=== PATIENT | male | born 1955 | race Caucasian/White ===

== ENCOUNTER 2021-12-25 13:44 | Inpatient (IN) ==
[2021-12-25] MEDS ORDERED: Naloxone 0.4 MG/ML INJ IVP PRN (16:51)
[2021-12-25] MEDS ORDERED: Ondansetron 4 MG/2 ML VIAL IVP PRN (16:51)
[2021-12-25] MEDS ORDERED: Iopamidol - 370 500 ML MLS IVP ONE (17:27)
[2021-12-25] MEDS: *HR* Heparin 5,000 UNIT/ML VIAL SQ SCH (17:35)
[2021-12-25] MEDS: 0.9 % Sodium Chloride 1,000 ML IVC SCH (17:40)
[2021-12-25] MEDS ORDERED: Iopamidol - 370 500 ML MLS RC ONE (18:34)
[2021-12-26] MEDS ORDERED: traZODone 50 MG TABLET PO PRN (01:00)
[2021-12-26 01:38] LABS: Basophils % 0.4 %; Eosinophils # 0.1 K/mcL (0.0-0.6); Hematocrit 42.5 % (37.5-50.1); Hemoglobin 14.7 g/dL (12.9-16.9); Immature Granulocytes % 0.7 % (0-4); Lymphocytes % 10.9 %; Mean Corpuscular HGB Conc 34.6 g/dL (31.6-35.5); Mean Corpuscular Hemoglobin 31.5 pg (28.0-33.3); Mean Corpuscular Volume 91.2 fL (83.0-100.0); Mean Platelet Volume 8.5 fL (9.4-12.4); Monocytes # 0.9 K/mcL (0.0-1.3); Neutrophils # 6.9 K/mcL (1.6-8.9); Platelet Count 257 K/mcL (140-400); Red Blood Count 4.66 M/mcL (4.19-5.50); Red Cell Distribution Width 21.6 % (11.5-14.5); White Blood Count 8.9 K/mcL (4.3-11.1)
[2021-12-26 02:05] LABS: BUN/Creatinine Ratio 9 (6-26); Blood Urea Nitrogen 10 mg/dL (8-23); Calcium 9.1 mg/dL (8.6-10.3); Carbon Dioxide 25 mEq/L (23-29); Chloride 104 mEq/L (98-107); Glucose 110 mg/dL (70-105); Osmolality,Calculated 288 (280-300); Potassium 3.5 mEq/L (3.5-5.1); Sodium 139 mEq/L (136-145); eGFR For African Americans > 60 (> 60); eGFR For Non-African Americans > 60 (> 60)
[2021-12-26] MEDS: *HR* Heparin 5,000 UNIT/ML VIAL SQ SCH ×2 (05:22→13:44)
[2021-12-26] MEDS: 0.9 % Sodium Chloride 1,000 ML IVC SCH (08:06)
[2021-12-26] MEDS ORDERED: Ketorolac 30 MG/ML VIAL IVP ONE (08:48)
[2021-12-26] MEDS: Ketorolac 30 MG/ML VIAL IVP PRN (15:26)
[2021-12-26] MEDS: *HR* HYDROmorphone (PF) 1 MG/ML SYRINGE IVP PRN (19:44)
[2021-12-26] MEDS: Piperacillin/Tazobactam 3.375 GM in 0.9 % Sodium Chloride Mini Bag 100 ML IVPB SCH (23:41)
[2021-12-27] MEDS: *HR* HYDROmorphone (PF) 1 MG/ML SYRINGE IVP PRN ×3 (01:10→19:44)
[2021-12-27 01:11] LABS: Hematocrit 39.2 % (37.5-50.1); Hemoglobin 13.4 g/dL (12.9-16.9); Mean Corpuscular HGB Conc 34.2 g/dL (31.6-35.5); Mean Corpuscular Hemoglobin 31.8 pg (28.0-33.3); Mean Corpuscular Volume 93.1 fL (83.0-100.0); Platelet Count 209 K/mcL (140-400); Red Blood Count 4.21 M/mcL (4.19-5.50); Red Cell Distribution Width 21.2 % (11.5-14.5)
[2021-12-27 01:32] LABS: BUN/Creatinine Ratio 14 (6-26); Blood Urea Nitrogen 15 mg/dL (8-23); Calcium 8.8 mg/dL (8.6-10.3); Carbon Dioxide 24 mEq/L (23-29); Chloride 105 mEq/L (98-107); Glucose 85 mg/dL (70-105); INR 1.2; Osmolality,Calculated 286 (280-300); Phosphorous 2.8 mg/dL (2.7-4.5); Potassium 3.5 mEq/L (3.5-5.1); Prothrombin Time 13.3 Seconds (9.4-12.1); Sodium 138 mEq/L (136-145); eGFR For African Americans > 60 (> 60); eGFR For Non-African Americans > 60 (> 60)
[2021-12-27] MEDS: *HR* Heparin 5,000 UNIT/ML VIAL SQ SCH ×2 (03:37→16:11)
[2021-12-27] MEDS ORDERED: Lidocaine -MPF 2% 2 ML VIAL ONE (07:36)
[2021-12-27] MEDS ORDERED: *HR* Propofol 200 MG/20 ML VIAL IVP ONE (07:36)
[2021-12-27] MEDS ORDERED: *HR* FentaNYL (PF) 100 MCG/2 ML VIAL ONE ×3 (07:36→13:33)
[2021-12-27] MEDS ORDERED: *HR* Rocuronium Bromide 50 MG/5 ML VIAL ONE ×3 (07:36→11:37)
[2021-12-27] MEDS ORDERED: *HR* HYDROmorphone PF 0.5 MG/0.5 ML SYRINGE IVP PRN (08:25)
[2021-12-27] MEDS: Piperacillin/Tazobactam 3.375 GM in 0.9 % Sodium Chloride Mini Bag 100 ML IVPB SCH ×3 (09:01→23:05)
[2021-12-27] MEDS ORDERED: Albumin Human 5% 12.5 GM/250 ML IV.SOLN ONE (09:16)
[2021-12-27] MEDS ORDERED: Ketamine HCL *QUVA* 50mg (1mL) SYRINGE ONE (09:16)
[2021-12-27] MEDS ORDERED: Ondansetron 4 MG/2 ML VIAL ONE (13:19)
[2021-12-27] MEDS ORDERED: Sugammadex Sodium 200 MG/2 ML VIAL IV ONE (13:24)
[2021-12-27] MEDS ORDERED: *HR* HYDROMORPHONE 2 MG/ML VIAL ONE (13:43)
[2021-12-27] MEDS ORDERED: Ringers Solution, Lactated 1,000 ML ONE (13:55)
[2021-12-27] MEDS ORDERED: Acetaminophen IV 1,000 MG/100 ML BAG IVPB ONE (13:57)
[2021-12-27] MEDS ORDERED: *HR* Metoprolol 5 MG/5 ML VIAL IVP ONE (14:02)
[2021-12-27] MEDS: *HR* Metoprolol 5 MG/5 ML VIAL IVP PRN ×3 (14:05→14:20)
[2021-12-27] MEDS: Ketorolac 30 MG/ML VIAL IVP PRN (23:04)
[2021-12-28 01:40] LABS: Hematocrit 37.7 % (37.5-50.1); Hemoglobin 12.7 g/dL (12.9-16.9); Mean Corpuscular HGB Conc 33.7 g/dL (31.6-35.5); Mean Corpuscular Hemoglobin 31.4 pg (28.0-33.3); Mean Corpuscular Volume 93.3 fL (83.0-100.0); Mean Platelet Volume 8.6 fL (9.4-12.4); Platelet Count 213 K/mcL (140-400); Red Blood Count 4.04 M/mcL (4.19-5.50); Red Cell Distribution Width 21.2 % (11.5-14.5)
[2021-12-28 01:48] LABS: INR 1.4; Prothrombin Time 15.2 Seconds (9.4-12.1)
[2021-12-28 02:08] LABS: BUN/Creatinine Ratio 15 (6-26); Blood Urea Nitrogen 18 mg/dL (8-23); Calcium 8.9 mg/dL (8.6-10.3); Carbon Dioxide 27 mEq/L (23-29); Chloride 104 mEq/L (98-107); Glucose 125 mg/dL (70-105); Osmolality,Calculated 291 (280-300); Potassium 4.7 mEq/L (3.5-5.1); Sodium 139 mEq/L (136-145); eGFR For African Americans > 60 (> 60); eGFR For Non-African Americans > 60 (> 60)
[2021-12-28] MEDS: *HR* HYDROmorphone (PF) 1 MG/ML SYRINGE IVP PRN ×3 (02:48→23:05)
[2021-12-28] MEDS: *HR* Heparin 5,000 UNIT/ML VIAL SQ SCH ×2 (05:14→18:34)
[2021-12-28] MEDS: Piperacillin/Tazobactam 3.375 GM in 0.9 % Sodium Chloride Mini Bag 100 ML IVPB SCH ×2 (07:37→16:14)
[2021-12-28] MEDS: Acetaminophen IV 1,000 MG/100 ML BAG IVPB SCH ×4 (07:38→23:53)
[2021-12-28] MEDS: Ketorolac 30 MG/ML VIAL IVP PRN ×2 (10:33→20:26)
[2021-12-28] MEDS: Pantoprazole 40 MG VIAL IVP SCH (14:06)
[2021-12-29] MEDS: Piperacillin/Tazobactam 3.375 GM in 0.9 % Sodium Chloride Mini Bag 100 ML IVPB SCH ×3 (00:14→15:00)
[2021-12-29 03:19] LABS: Hematocrit 35.8 % (37.5-50.1); Hemoglobin 12.2 g/dL (12.9-16.9); Mean Corpuscular HGB Conc 34.1 g/dL (31.6-35.5); Mean Corpuscular Hemoglobin 31.9 pg (28.0-33.3); Mean Corpuscular Volume 93.7 fL (83.0-100.0); Mean Platelet Volume 8.9 fL (9.4-12.4); Platelet Count 199 K/mcL (140-400); Red Blood Count 3.82 M/mcL (4.19-5.50); Red Cell Distribution Width 22.2 % (11.5-14.5); White Blood Count 5.3 K/mcL (4.3-11.1)
[2021-12-29 03:33] LABS: BUN/Creatinine Ratio 20 (6-26); Blood Urea Nitrogen 22 mg/dL (8-23); Carbon Dioxide 30 mEq/L (23-29); Chloride 101 mEq/L (98-107); Glucose 80 mg/dL (70-105); Osmolality,Calculated 294 (280-300); Potassium 3.6 mEq/L (3.5-5.1); Sodium 141 mEq/L (136-145); eGFR For African Americans > 60 (> 60); eGFR For Non-African Americans > 60 (> 60)
[2021-12-29] MEDS: *HR* Heparin 5,000 UNIT/ML VIAL SQ SCH ×2 (05:59→17:12)
[2021-12-29] MEDS: Acetaminophen IV 1,000 MG/100 ML BAG IVPB SCH ×3 (05:59→17:12)
[2021-12-29] MEDS: Pantoprazole 40 MG VIAL IVP SCH (08:21)
[2021-12-29] MEDS: *HR* HYDROmorphone (PF) 1 MG/ML SYRINGE IVP PRN (19:41)
[2021-12-30] MEDS: *HR* HYDROmorphone (PF) 1 MG/ML SYRINGE IVP PRN ×2 (00:02→05:01)
[2021-12-30] MEDS: Acetaminophen IV 1,000 MG/100 ML BAG IVPB SCH ×3 (00:03→16:55)
[2021-12-30] MEDS: Piperacillin/Tazobactam 3.375 GM in 0.9 % Sodium Chloride Mini Bag 100 ML IVPB SCH ×3 (00:03→16:54)
[2021-12-30 03:07] LABS: Basophils # 0.1 K/mcL (0.0-0.2); Basophils % 1.1 %; Eosinophils # 0.3 K/mcL (0.0-0.6); Eosinophils % 5.2 %; Hematocrit 36.5 % (37.5-50.1); Hemoglobin 12.1 g/dL (12.9-16.9); Lymphocytes # 0.7 K/mcL (0.6-4.6); Lymphocytes % 11.6 %; Mean Corpuscular HGB Conc 33.2 g/dL (31.6-35.5); Mean Corpuscular Hemoglobin 31.4 pg (28.0-33.3); Mean Corpuscular Volume 94.8 fL (83.0-100.0); Mean Platelet Volume 9.3 fL (9.4-12.4); Monocytes # 0.8 K/mcL (0.0-1.3); Monocytes % 13.1 %; Neutrophils # 4.3 K/mcL (1.6-8.9); Platelet Count 229 K/mcL (140-400); Red Blood Count 3.85 M/mcL (4.19-5.50); Red Cell Distribution Width 21.5 % (11.5-14.5); White Blood Count 6.4 K/mcL (4.3-11.1)
[2021-12-30 03:28] LABS: BUN/Creatinine Ratio 23 (6-26); Blood Urea Nitrogen 26 mg/dL (8-23); Calcium 8.7 mg/dL (8.6-10.3); Carbon Dioxide 29 mEq/L (23-29); Chloride 96 mEq/L (98-107); Glucose 90 mg/dL (70-105); Osmolality,Calculated 286 (280-300); Potassium 3.4 mEq/L (3.5-5.1); Sodium 136 mEq/L (136-145); eGFR For African Americans > 60 (> 60); eGFR For Non-African Americans > 60 (> 60)
[2021-12-30] MEDS: *HR* Heparin 5,000 UNIT/ML VIAL SQ SCH ×2 (05:01→16:37)
[2021-12-30] MEDS ORDERED: Iopamidol - 370 500 ML MLS IVP ONE ×2 (06:55→07:17)
[2021-12-30] MEDS: Ketorolac 30 MG/ML VIAL IVP PRN (07:05)
[2021-12-30] MEDS ORDERED: *HR* HYDROmorphone (PF) 1 MG/ML SYRINGE IVP STA (07:24)
[2021-12-30] MEDS: Pantoprazole 40 MG VIAL IVP SCH (08:08)
[2021-12-30] MEDS ORDERED: Ondansetron 4 MG/2 ML VIAL IVP PRN ×2 (09:13→15:32)
[2021-12-30] MEDS ORDERED: *HR* Succinylcholine 200 MG/10 ML VIAL IVP ONE (09:17)
[2021-12-30] MEDS ORDERED: *HR* Rocuronium Bromide 50 MG/5 ML VIAL ONE ×2 (09:17→11:13)
[2021-12-30] MEDS ORDERED: Ondansetron 4 MG/2 ML VIAL ONE (09:17)
[2021-12-30] MEDS ORDERED: Lidocaine -MPF 4% 5 ML AMPUL ONE (09:17)
[2021-12-30] MEDS ORDERED: *HR* FentaNYL (PF) 100 MCG/2 ML VIAL ONE (09:17)
[2021-12-30] MEDS ORDERED: *HR* Propofol 200 MG/20 ML VIAL IVP ONE ×2 (09:17→13:05)
[2021-12-30] MEDS ORDERED: Lidocaine -MPF 2% 2 ML VIAL ONE (09:19)
[2021-12-30] MEDS ORDERED: *HR* HYDROMORPHONE 2 MG/ML VIAL ONE (11:10)
[2021-12-30] MEDS ORDERED: *HR* Metoprolol 5 MG/5 ML VIAL IVP SCH (12:00)
[2021-12-30] MEDS: *HR* HYDROmorphone PF 0.5 MG/0.5 ML SYRINGE IVP PRN ×4 (13:43→14:18)
[2021-12-30] MEDS ORDERED: Ringers Solution, Lactated 1,000 ML ONE (14:44)
[2021-12-30] MEDS ORDERED: Morphine PCA 30 MG/ 30 ML 30 ML PCA.VIAL IVC PRN (15:32)
[2021-12-30] MEDS ORDERED: Ketorolac 30 MG/ML VIAL IVP PRN (15:32)
[2021-12-30] MEDS ORDERED: Naloxone 0.4 MG/ML INJ IVP PRN (15:32)
[2021-12-30] MEDS: Fluconazole 400 MG/200 ML 400 MG/200 ML BAG IVPB SCH (16:54)
[2021-12-30] MEDS: Ringers Solution, Lactated 1,000 ML IVC SCH (17:11)
[2021-12-30] MEDS: Ipratropium/Albuterol Neb 3 ML IH SCH (20:30)
[2021-12-30] MEDS: *HR* Metoprolol 5 MG/5 ML VIAL IVP SCH (20:35)
[2021-12-30] MEDS ORDERED: 0.9 % Sodium Chloride 1,000 ML IV ONE (20:56)
[2021-12-31] MEDS: Piperacillin/Tazobactam 3.375 GM in 0.9 % Sodium Chloride Mini Bag 100 ML IVPB SCH ×3 (00:23→15:45)
[2021-12-31] MEDS: Acetaminophen IV 1,000 MG/100 ML BAG IVPB SCH ×4 (00:24→17:16)
[2021-12-31 01:16] LABS: Hematocrit 35.9 % (37.5-50.1); Hemoglobin 11.5 g/dL (12.9-16.9); Mean Corpuscular Volume 96.8 fL (83.0-100.0); Mean Platelet Volume 9.1 fL (9.4-12.4); Nucleated Red Blood Cells 0.2 /100 WBC (0); Platelet Count 194 K/mcL (140-400); Red Blood Count 3.71 M/mcL (4.19-5.50); Red Cell Distribution Width 22.3 % (11.5-14.5)
[2021-12-31 01:29] LABS: Calcium 7.9 mg/dL (8.6-10.3); Potassium 4.2 mEq/L (3.5-5.1)
[2021-12-31 01:41] LABS: White Blood Count 11.5 K/mcL (4.3-11.1)
[2021-12-31 02:28] LABS: Lymphocytes # 0.9 K/mcL (0.6-4.6); Monocytes # 0.7 K/mcL (0.0-1.3); Neutrophils # 9.9 K/mcL (1.6-8.9)
[2021-12-31 02:29] LABS: Platelet Estimate Normal (Normal)
[2021-12-31] MEDS: Ipratropium/Albuterol Neb 3 ML IH SCH ×4 (03:35→22:38)
[2021-12-31] MEDS: *HR* Heparin 5,000 UNIT/ML VIAL SQ SCH ×2 (04:28→17:16)
[2021-12-31] MEDS: *HR* Metoprolol 5 MG/5 ML VIAL IVP SCH ×3 (04:29→21:30)
[2021-12-31] MEDS: Ringers Solution, Lactated 1,000 ML IVC SCH (04:33)
[2021-12-31] MEDS: 0.9 % Sodium Chloride 1,000 ML IVC SCH ×2 (08:04→17:15)
[2021-12-31] MEDS: Fluconazole 400 MG/200 ML 400 MG/200 ML BAG IVPB SCH (08:04)
[2021-12-31] MEDS: Pantoprazole 40 MG VIAL IVP SCH (08:04)
[2021-12-31] MEDS ORDERED: Lidocaine -MPF 1% 5 ML AMPUL INFILT ONE (09:27)
[2021-12-31 10:58] LABS: Albumin 2.5 g/dL (3.5-5.7); Magnesium 2.1 mg/dL (1.6-2.6); Phosphorous 4.3 mg/dL (2.7-4.5)
[2021-12-31] MEDS ORDERED: D10% in Water 500 ML IVC PRN (12:59)
[2021-12-31] MEDS ORDERED: Clinimix E 5%-15% SOLUTION 2,000 ML with MVI, adult with vitamin K 10 ML IVC SCH (17:00)
[2022-01-01] MEDS: Piperacillin/Tazobactam 3.375 GM in 0.9 % Sodium Chloride Mini Bag 100 ML IVPB SCH ×4 (00:14→23:47)
[2022-01-01] MEDS: Acetaminophen IV 1,000 MG/100 ML BAG IVPB SCH ×5 (00:14→23:49)
[2022-01-01] MEDS: Ipratropium/Albuterol Neb 3 ML IH SCH ×4 (04:11→20:11)
[2022-01-01] MEDS: 0.9 % Sodium Chloride 1,000 ML IVC SCH ×4 (05:12→18:37)
[2022-01-01] MEDS: *HR* Heparin 5,000 UNIT/ML VIAL SQ SCH ×2 (05:14→18:52)
[2022-01-01] MEDS: *HR* Metoprolol 5 MG/5 ML VIAL IVP SCH ×3 (05:14→21:37)
[2022-01-01 05:52] LABS: Basophils % 0.5 %; Eosinophils # 0.3 K/mcL (0.0-0.6); Eosinophils % 3.8 %; Hematocrit 31.7 % (37.5-50.1); Immature Granulocytes % 7.1 % (0-4); Lymphocytes # 0.6 K/mcL (0.6-4.6); Mean Corpuscular HGB Conc 31.5 g/dL (31.6-35.5); Mean Corpuscular Hemoglobin 31.2 pg (28.0-33.3); Mean Corpuscular Volume 98.8 fL (83.0-100.0); Mean Platelet Volume 9.4 fL (9.4-12.4); Monocytes # 0.5 K/mcL (0.0-1.3); Monocytes % 6.1 %; Neutrophils # 6.5 K/mcL (1.6-8.9); Nucleated Red Blood Cells 0.2 /100 WBC (0); Platelet Count 178 K/mcL (140-400); Red Blood Count 3.21 M/mcL (4.19-5.50); Red Cell Distribution Width 22.5 % (11.5-14.5); Segmented Neutrophils % 75.5 %; White Blood Count 8.6 K/mcL (4.3-11.1)
[2022-01-01 06:09] LABS: BUN/Creatinine Ratio 28 (6-26); Blood Urea Nitrogen 27 mg/dL (8-23); Calcium 8.2 mg/dL (8.6-10.3); Carbon Dioxide 31 mEq/L (23-29); Chloride 106 mEq/L (98-107); Glucose 126 mg/dL (70-105); Osmolality,Calculated 293 (280-300); Potassium 3.6 mEq/L (3.5-5.1); Sodium 138 mEq/L (136-145); eGFR For African Americans > 60 (> 60); eGFR For Non-African Americans > 60 (> 60)
[2022-01-01 06:10] LABS: Magnesium 2.5 mg/dL (1.6-2.6); Phosphorous 2.3 mg/dL (2.7-4.5)
[2022-01-01 06:22] LABS: Anisocytosis 2+ (Not Present); Platelet Estimate Normal (Normal)
[2022-01-01] MEDS ORDERED: *HR* Dextrose 50 % in Water (Syg) 50 ML SYRINGE IVP ONE ×2 (08:36→09:00)
[2022-01-01] MEDS: Fluconazole 400 MG/200 ML 400 MG/200 ML BAG IVPB SCH (09:02)
[2022-01-01] MEDS: Pantoprazole 40 MG VIAL IVP SCH (09:03)
[2022-01-01] MEDS ORDERED: Potassium Phosphate 44 MEQ in 0.9 % Sodium Chloride 250 ML IVPB ONE (11:50)
[2022-01-01] MEDS ORDERED: Clinimix E 5%-15% SOLUTION 2,000 ML with MVI, adult with vitamin K 10 ML IVC SCH (17:00)
[2022-01-01] MEDS ORDERED: *HR* Dextrose 50 % in Water (Syg) 50 ML SYRINGE IVP PRN (17:19)
[2022-01-01] MEDS ORDERED: Dextrose Gel 15 GM/37.5 ML TUBE PO PRN ×2 (17:19)
[2022-01-01] MEDS ORDERED: D5% in Water 1,000 ML IVC PRN (17:19)
[2022-01-01] MEDS ORDERED: *HR* HYDROmorphone (PF) 1 MG/ML SYRINGE IVP ONE (23:24)
[2022-01-02] MEDS: 0.9 % Sodium Chloride 1,000 ML IVC SCH ×3 (00:03→12:30)
[2022-01-02] MEDS: *HR* Metoprolol 5 MG/5 ML VIAL IVP SCH ×3 (04:15→20:31)
[2022-01-02] MEDS: *HR* Heparin 5,000 UNIT/ML VIAL SQ SCH ×2 (04:16→16:37)
[2022-01-02 04:43] LABS: Hemoglobin 10.5 g/dL (12.9-16.9); Mean Corpuscular HGB Conc 31.8 g/dL (31.6-35.5); Mean Corpuscular Hemoglobin 31.3 pg (28.0-33.3); Mean Corpuscular Volume 98.2 fL (83.0-100.0); Mean Platelet Volume 9.6 fL (9.4-12.4); Nucleated Red Blood Cells 0.4 /100 WBC (0); Platelet Count 189 K/mcL (140-400); Red Blood Count 3.36 M/mcL (4.19-5.50); White Blood Count 7.3 K/mcL (4.3-11.1)
[2022-01-02] MEDS: Ipratropium/Albuterol Neb 3 ML IH SCH ×4 (04:44→21:32)
[2022-01-02 05:01] LABS: Magnesium 2.3 mg/dL (1.6-2.6); Phosphorous 3.3 mg/dL (2.7-4.5)
[2022-01-02 05:03] LABS: BUN/Creatinine Ratio 23 (6-26); Blood Urea Nitrogen 22 mg/dL (8-23); Calcium 8.6 mg/dL (8.6-10.3); Carbon Dioxide 27 mEq/L (23-29); Chloride 107 mEq/L (98-107); Glucose 121 mg/dL (70-105); Osmolality,Calculated 297 (280-300); Potassium 3.4 mEq/L (3.5-5.1); Sodium 141 mEq/L (136-145); eGFR For African Americans > 60 (> 60); eGFR For Non-African Americans > 60 (> 60)
[2022-01-02 05:19] LABS: Platelet Estimate Normal (Normal); Smudge Cells Present (Not Present)
[2022-01-02 05:20] LABS: Eosinophils # 0.4 K/mcL (0.0-0.6); Lymphocytes # 1.5 K/mcL (0.6-4.6); Monocytes # 0.3 K/mcL (0.0-1.3); Neutrophils # 5.1 K/mcL (1.6-8.9)
[2022-01-02] MEDS: Acetaminophen IV 1,000 MG/100 ML BAG IVPB SCH ×3 (06:08→17:53)
[2022-01-02] MEDS: Piperacillin/Tazobactam 3.375 GM in 0.9 % Sodium Chloride Mini Bag 100 ML IVPB SCH ×2 (08:04→16:34)
[2022-01-02] MEDS: Pantoprazole 40 MG VIAL IVP SCH (08:05)
[2022-01-02] MEDS: Fluconazole 400 MG/200 ML 400 MG/200 ML BAG IVPB SCH (08:05)
[2022-01-02] MEDS: Orphenadrine 60 MG/2 ML VIAL IVP PRN (09:33)
[2022-01-02] MEDS ORDERED: *HR* HYDROmorphone (PF) 1 MG/ML SYRINGE IVP ONE (10:45)
[2022-01-02] MEDS: 0.45 % Sodium Chloride w/KCl 20 MEQ/1,000 ML MLS IVC SCH (10:47)
[2022-01-02] MEDS ORDERED: Iopamidol - 370 500 ML MLS IVP ONE (10:50)
[2022-01-02] MEDS: Bisacodyl 10 MG RECTAL SUPPOSITORY RC PRN (12:38)
[2022-01-02] MEDS ORDERED: Clinimix E 5%-15% SOLUTION 2,000 ML with MVI, adult with vitamin K 10 ML IVC SCH (17:00)
[2022-01-03] MEDS: Piperacillin/Tazobactam 3.375 GM in 0.9 % Sodium Chloride Mini Bag 100 ML IVPB SCH ×3 (00:42→16:09)
[2022-01-03] MEDS: 0.45 % Sodium Chloride w/KCl 20 MEQ/1,000 ML MLS IVC SCH (01:13)
[2022-01-03] MEDS: Acetaminophen IV 1,000 MG/100 ML BAG IVPB SCH ×4 (01:13→18:24)
[2022-01-03] MEDS: Ipratropium/Albuterol Neb 3 ML IH SCH ×2 (03:50→10:43)
[2022-01-03] MEDS: *HR* Heparin 5,000 UNIT/ML VIAL SQ SCH ×2 (05:15→18:24)
[2022-01-03] MEDS: *HR* Metoprolol 5 MG/5 ML VIAL IVP SCH ×3 (05:15→18:24)
[2022-01-03 05:57] LABS: Hematocrit 33.5 % (37.5-50.1); Hemoglobin 10.7 g/dL (12.9-16.9); Mean Corpuscular HGB Conc 31.9 g/dL (31.6-35.5); Mean Corpuscular Hemoglobin 31.4 pg (28.0-33.3); Mean Corpuscular Volume 98.2 fL (83.0-100.0); Mean Platelet Volume 9.9 fL (9.4-12.4); Nucleated Red Blood Cells 0.2 /100 WBC (0); Platelet Count 200 K/mcL (140-400); Red Blood Count 3.41 M/mcL (4.19-5.50); Red Cell Distribution Width 22.6 % (11.5-14.5)
[2022-01-03 06:04] LABS: White Blood Count 11.3 K/mcL (4.3-11.1)
[2022-01-03 06:09] LABS: Phosphorous 3.5 mg/dL (2.7-4.5)
[2022-01-03 06:10] LABS: BUN/Creatinine Ratio 23 (6-26); Blood Urea Nitrogen 19 mg/dL (8-23); Calcium 8.6 mg/dL (8.6-10.3); Carbon Dioxide 27 mEq/L (23-29); Chloride 106 mEq/L (98-107); Glucose 125 mg/dL (70-105); Osmolality,Calculated 294 (280-300); Potassium 3.6 mEq/L (3.5-5.1); Sodium 140 mEq/L (136-145); eGFR For African Americans > 60 (> 60); eGFR For Non-African Americans > 60 (> 60)
[2022-01-03 06:27] LABS: Platelet Estimate Normal (Normal)
[2022-01-03 06:29] LABS: Anisocytosis 2+ (Not Present); Lymphocytes # 1.1 K/mcL (0.6-4.6); Monocytes # 1.1 K/mcL (0.0-1.3); Neutrophils # 8.6 K/mcL (1.6-8.9)
[2022-01-03] MEDS: Fluconazole 400 MG/200 ML 400 MG/200 ML BAG IVPB SCH (07:52)
[2022-01-03] MEDS: Pantoprazole 40 MG VIAL IVP SCH (07:52)
[2022-01-03] MEDS: Orphenadrine 60 MG/2 ML VIAL IVP PRN (08:28)
[2022-01-03] MEDS ORDERED: Ipratropium/Albuterol Neb 3 ML IH PRN (10:42)
[2022-01-03] MEDS ORDERED: 0.9 % Sodium Chloride w KCl 40 MEQ/1,000 ML MLS IVC SCH (11:45)
[2022-01-03] MEDS ORDERED: 0.9 % Sodium Chloride 1,000 ML IVC SCH (12:30)
[2022-01-03] MEDS: Bisacodyl 10 MG RECTAL SUPPOSITORY RC PRN (12:33)
[2022-01-03] MEDS: Insulin LISPRO 300 UNITS/3 ML VIAL SUBQ SCH ×2 (16:08→21:07)
[2022-01-03] MEDS ORDERED: Clinimix E 5%-15% SOLUTION 2,000 ML, Amino Acids 10% 200 ML with MVI, adult with vita... IVC SCH (17:00)
[2022-01-04] MEDS: Acetaminophen IV 1,000 MG/100 ML BAG IVPB SCH ×5 (00:14→23:30)
[2022-01-04] MEDS: Piperacillin/Tazobactam 3.375 GM in 0.9 % Sodium Chloride Mini Bag 100 ML IVPB SCH ×4 (00:15→23:31)
[2022-01-04] MEDS: *HR* Metoprolol 5 MG/5 ML VIAL IVP SCH ×5 (00:15→23:31)
[2022-01-04] MEDS: Insulin LISPRO 300 UNITS/3 ML VIAL SUBQ SCH ×6 (00:16→20:12)
[2022-01-04] MEDS: *HR* Heparin 5,000 UNIT/ML VIAL SQ SCH ×2 (05:20→17:39)
[2022-01-04 07:04] LABS: Hematocrit 32.7 % (37.5-50.1); Hemoglobin 10.6 g/dL (12.9-16.9); Mean Corpuscular HGB Conc 32.4 g/dL (31.6-35.5); Mean Corpuscular Hemoglobin 31.8 pg (28.0-33.3); Mean Corpuscular Volume 98.2 fL (83.0-100.0); Mean Platelet Volume 10.2 fL (9.4-12.4); Platelet Count 200 K/mcL (140-400); Red Blood Count 3.33 M/mcL (4.19-5.50); Red Cell Distribution Width 22.5 % (11.5-14.5); White Blood Count 15.1 K/mcL (4.3-11.1)
[2022-01-04 07:24] LABS: BUN/Creatinine Ratio 23 (6-26); Blood Urea Nitrogen 19 mg/dL (8-23); Calcium 8.5 mg/dL (8.6-10.3); Carbon Dioxide 24 mEq/L (23-29); Chloride 103 mEq/L (98-107); Glucose 87 mg/dL (70-105); Osmolality,Calculated 284 (280-300); Sodium 136 mEq/L (136-145); eGFR For African Americans > 60 (> 60); eGFR For Non-African Americans > 60 (> 60)
[2022-01-04 07:25] LABS: Magnesium 1.9 mg/dL (1.6-2.6); Phosphorous 3.5 mg/dL (2.7-4.5)
[2022-01-04 08:04] LABS: Lymphocytes # 1.2 K/mcL (0.6-4.6); Monocytes # 1.8 K/mcL (0.0-1.3)
[2022-01-04 08:05] LABS: Anisocytosis 2+ (Not Present); Platelet Estimate Normal (Normal)
[2022-01-04] MEDS: Pantoprazole 40 MG VIAL IVP SCH (08:06)
[2022-01-04] MEDS: Fluconazole 400 MG/200 ML 400 MG/200 ML BAG IVPB SCH (08:06)
[2022-01-04] MEDS ORDERED: *HR* HYDROmorphone 2 MG/ML SYRINGE IVP ONE (11:30)
[2022-01-04] MEDS: 0.9 % Sodium Chloride 1,000 ML IVC SCH (15:45)
[2022-01-04] MEDS ORDERED: Clinimix E 5%-15% SOLUTION 2,000 ML, Amino Acids 10% 200 ML with MVI, adult with vita... IVC SCH (17:00)
[2022-01-05] MEDS: Insulin LISPRO 300 UNITS/3 ML VIAL SUBQ SCH ×5 (00:35→21:03)
[2022-01-05] MEDS: Acetaminophen IV 1,000 MG/100 ML BAG IVPB SCH ×3 (06:28→18:33)
[2022-01-05] MEDS: *HR* Heparin 5,000 UNIT/ML VIAL SQ SCH ×2 (06:29→17:30)
[2022-01-05] MEDS: *HR* Metoprolol 5 MG/5 ML VIAL IVP SCH ×3 (06:29→17:30)
[2022-01-05 07:39] LABS: Hematocrit 32.2 % (37.5-50.1); Hemoglobin 10.3 g/dL (12.9-16.9); Mean Platelet Volume 10.4 fL (9.4-12.4); Platelet Count 234 K/mcL (140-400); Red Blood Count 3.32 M/mcL (4.19-5.50); Red Cell Distribution Width 22.5 % (11.5-14.5); White Blood Count 16.7 K/mcL (4.3-11.1)
[2022-01-05 07:46] LABS: Magnesium 1.8 mg/dL (1.6-2.6); Phosphorous 3.8 mg/dL (2.7-4.5)
[2022-01-05 08:37] LABS: Monocytes # 1.3 K/mcL (0.0-1.3); Neutrophils # 13.4 K/mcL (1.6-8.9); Platelet Estimate Normal (Normal)
[2022-01-05] MEDS: Fluconazole 400 MG/200 ML 400 MG/200 ML BAG IVPB SCH (09:20)
[2022-01-05] MEDS: Piperacillin/Tazobactam 3.375 GM in 0.9 % Sodium Chloride Mini Bag 100 ML IVPB SCH ×2 (09:20→16:15)
[2022-01-05] MEDS: Pantoprazole 40 MG VIAL IVP SCH (09:21)
[2022-01-05 12:41] LABS: Bacteria,Urine Few per hpf (None-Few); Bilirubin,Urine Negative (Negative); Blood,Urine Moderate (Negative); Clarity,Urine Clear (Clear); Color,Urine Yellow (Yellow); Glucose,Urine (UA) Normal (Normal); Ketones,Urine Negative (Negative); Leukocyte Esterase,Urine Negative (Negative); Mucus,Urine Few per lpf (None-Few); Nitrite,Urine Negative (Negative); Protein,Urine 100 mg/dL (Neg-Trace); RBC,Urine 50-100 per hpf (0-3); Specific Gravity,Urine > 1.030 (1.010-1.025); Squamous Epithelial Cell,Urine Few per hpf (None-Few); Urobilinogen,Urine Normal (Normal)
[2022-01-05 14:34] LABS: BUN/Creatinine Ratio 22 (6-26); Blood Urea Nitrogen 20 mg/dL (8-23); Calcium 8.5 mg/dL (8.6-10.3); Carbon Dioxide 27 mEq/L (23-29); Chloride 106 mEq/L (98-107); Glucose 112 mg/dL (70-105); Osmolality,Calculated 289 (280-300); Potassium 3.8 mEq/L (3.5-5.1); Sodium 138 mEq/L (136-145); eGFR For African Americans > 60 (> 60); eGFR For Non-African Americans > 60 (> 60)
[2022-01-05 14:39] LABS: BUN/Creatinine Ratio 23 (6-26); Blood Urea Nitrogen 19 mg/dL (8-23); Calcium 8.3 mg/dL (8.6-10.3); Carbon Dioxide 23 mEq/L (23-29); Chloride 106 mEq/L (98-107); Glucose 83 mg/dL (70-105); Osmolality,Calculated 287 (280-300); Potassium 3.6 mEq/L (3.5-5.1); Sodium 138 mEq/L (136-145); eGFR For African Americans > 60 (> 60); eGFR For Non-African Americans > 60 (> 60)
[2022-01-05] MEDS ORDERED: Clinimix E 5%-15% SOLUTION 2,000 ML, Amino Acids 10% 200 ML with MVI, adult with vita... IVC SCH (17:00)
[2022-01-05] MEDS: 0.9 % Sodium Chloride 1,000 ML IVC SCH (18:38)
[2022-01-06] MEDS: Insulin LISPRO 300 UNITS/3 ML VIAL SUBQ SCH ×6 (00:06→21:02)
[2022-01-06] MEDS: Acetaminophen IV 1,000 MG/100 ML BAG IVPB SCH ×5 (00:46→22:47)
[2022-01-06] MEDS: Piperacillin/Tazobactam 3.375 GM in 0.9 % Sodium Chloride Mini Bag 100 ML IVPB SCH ×4 (00:46→22:50)
[2022-01-06] MEDS: *HR* Metoprolol 5 MG/5 ML VIAL IVP SCH ×5 (00:47→22:46)
[2022-01-06] MEDS: *HR* Heparin 5,000 UNIT/ML VIAL SQ SCH ×2 (05:41→17:11)
[2022-01-06 07:23] LABS: Hematocrit 30.1 % (37.5-50.1); Hemoglobin 9.6 g/dL (12.9-16.9); Mean Corpuscular HGB Conc 31.9 g/dL (31.6-35.5); Mean Corpuscular Hemoglobin 31.2 pg (28.0-33.3); Mean Corpuscular Volume 97.7 fL (83.0-100.0); Mean Platelet Volume 10.1 fL (9.4-12.4); Platelet Count 300 K/mcL (140-400); Red Blood Count 3.08 M/mcL (4.19-5.50); Red Cell Distribution Width 22.1 % (11.5-14.5); White Blood Count 17.8 K/mcL (4.3-11.1)
[2022-01-06 07:37] LABS: BUN/Creatinine Ratio 21 (6-26); Blood Urea Nitrogen 18 mg/dL (8-23); Carbon Dioxide 22 mEq/L (23-29); Chloride 105 mEq/L (98-107); Glucose 121 mg/dL (70-105); Osmolality,Calculated 281 (280-300); Potassium 3.7 mEq/L (3.5-5.1); Sodium 134 mEq/L (136-145); eGFR For African Americans > 60 (> 60); eGFR For Non-African Americans > 60 (> 60)
[2022-01-06 07:38] LABS: Magnesium 1.8 mg/dL (1.6-2.6); Phosphorous 3.4 mg/dL (2.7-4.5)
[2022-01-06] MEDS: Pantoprazole 40 MG VIAL IVP SCH (08:33)
[2022-01-06] MEDS: Fluconazole 400 MG/200 ML 400 MG/200 ML BAG IVPB SCH (08:35)
[2022-01-06 09:30] LABS: Eosinophils # 0.4 K/mcL (0.0-0.6); Lymphocytes # 0.4 K/mcL (0.6-4.6); Monocytes # 1.4 K/mcL (0.0-1.3); Neutrophils # 15.3 K/mcL (1.6-8.9); Platelet Estimate Normal (Normal); Toxic Granulation Present (Not Present)
[2022-01-06] MEDS ORDERED: Iopamidol - 370 500 ML MLS PO ONE (10:34)
[2022-01-06] MEDS ORDERED: *HR* HYDROmorphone (PF) 1 MG/ML SYRINGE IVP ONE (11:22)
[2022-01-06] MEDS ORDERED: Lidocaine HCL 4 ML Topical Solution (Laryng-O-Jet Kit Sterile Pak) TP ONE (12:27)
[2022-01-06] MEDS ORDERED: Ondansetron 4 MG/2 ML VIAL ONE (12:28)
[2022-01-06] MEDS ORDERED: Lidocaine -MPF 2% 2 ML VIAL ONE (12:28)
[2022-01-06] MEDS ORDERED: *HR* FentaNYL (PF) 100 MCG/2 ML VIAL ONE ×2 (12:28→17:54)
[2022-01-06] MEDS ORDERED: *HR* Rocuronium Bromide 50 MG/5 ML VIAL ONE ×3 (12:28→14:36)
[2022-01-06] MEDS ORDERED: *HR* Propofol 200 MG/20 ML VIAL IVP ONE (12:28)
[2022-01-06] MEDS ORDERED: *HR* Succinylcholine 200 MG/10 ML VIAL IVP ONE (12:39)
[2022-01-06] MEDS ORDERED: Albumin Human 5% 25.0 GM/500 ML IV.SOLN ONE ×2 (12:41→16:42)
[2022-01-06] MEDS ORDERED: Heparin 1,000 UNITS/500 mL 500 ML ONE (12:45)
[2022-01-06] MEDS ORDERED: *HR* Phenylephrine 10 MG/ML VIAL ONE (13:02)
[2022-01-06] MEDS ORDERED: EPINEPHrine 1 MG/ML VIAL ONE (13:03)
[2022-01-06] MEDS ORDERED: Acetaminophen IV 1,000 MG/100 ML BAG IVPB ONE (13:42)
[2022-01-06] MEDS ORDERED: Ketamine HCL *QUVA* 50mg (1mL) SYRINGE ONE ×2 (14:36→16:45)
[2022-01-06] MEDS ORDERED: *HR* Midazolam HCl 2 MG/2 ML VIAL ONE ×2 (14:38→17:40)
[2022-01-06] MEDS ORDERED: *HR* HYDROMORPHONE 2 MG/ML VIAL ONE (16:11)
[2022-01-06] MEDS ORDERED: *HR* Cisatracurium 10 MG/5 ML VIAL IV ONE ×2 (16:45→17:32)
[2022-01-06] MEDS ORDERED: Clinimix E 5%-15% SOLUTION 2,000 ML, Amino Acids 10% 200 ML with MVI, adult with vita... IVC SCH ×2 (17:00→22:19)
[2022-01-06] MEDS: 0.9 % Sodium Chloride 1,000 ML IVC SCH (17:10)
[2022-01-06] MEDS ORDERED: FentaNYL (PF) 1,000 MCG/100 ML IV.SOLN IVC SCH ×2 (19:00→19:37)
[2022-01-06] MEDS ORDERED: Artificial Tears SOLN 15 ML BOTTLE BOTH EYES PRN ×2 (19:30→22:19)
[2022-01-06] MEDS ORDERED: Artificial Tears SOLN 15 ML BOTTLE BOTH EYES SCH (20:00)
[2022-01-06 20:07] LABS: ABG Base Excess -4 mEq/L (-2 to 3); ABG HCO3 25 mEq/L (21-27); ABG Oxygen Saturation 94 % (95-98); ABG PCO2 63 mmHg (35-45); ABG PO2 90 mmHg (85-104); ABG TCO2 27 mEq/L (20-26); Blood Gas VT 480 cc
[2022-01-06] MEDS ORDERED: Chlorhexidine Rinse 15 ML MOUTHWASH MM SCH (21:00)
[2022-01-06 21:52] LABS: ABG Base Excess -2 mEq/L (-2 to 3); ABG HCO3 23 mEq/L (21-27); ABG Oxygen Saturation 97 % (95-98); ABG PCO2 41 mmHg (35-45); ABG PH 7.36 pH Units (7.32-7.45); ABG PO2 98 mmHg (85-104); ABG TCO2 24 mEq/L (20-26); Blood Gas VT 480 cc
[2022-01-06] MEDS ORDERED: Bisacodyl 10 MG RECTAL SUPPOSITORY RC PRN (22:19)
[2022-01-06] MEDS ORDERED: Ipratropium/Albuterol Neb 3 ML IH PRN (22:19)
[2022-01-06] MEDS ORDERED: D5% in Water 1,000 ML IVC PRN (22:19)
[2022-01-06] MEDS ORDERED: Ondansetron 4 MG/2 ML VIAL IVP PRN (22:19)
[2022-01-06] MEDS ORDERED: *HR* Dextrose 50 % in Water (Syg) 50 ML SYRINGE IVP PRN (22:19)
[2022-01-06] MEDS ORDERED: D10% in Water 500 ML IVC PRN (22:19)
[2022-01-06] MEDS ORDERED: Dextrose Gel 15 GM/37.5 ML TUBE PO PRN ×2 (22:19)
[2022-01-06] MEDS ORDERED: Naloxone 0.4 MG/ML INJ IVP PRN (22:19)
[2022-01-06] MEDS ORDERED: Orphenadrine 60 MG/2 ML VIAL IVP PRN (22:19)
[2022-01-06] MEDS: Chlorhexidine Rinse 15 ML MOUTHWASH MM SCH (22:41)
[2022-01-07] MEDS: 0.9 % Sodium Chloride 1,000 ML IVC SCH ×2 (00:34→23:00)
[2022-01-07] MEDS: Insulin LISPRO 300 UNITS/3 ML VIAL SUBQ SCH ×6 (00:41→21:09)
[2022-01-07] MEDS: Artificial Tears SOLN 15 ML BOTTLE BOTH EYES SCH ×6 (01:51→23:00)
[2022-01-07 03:23] LABS: ABG Ionized Calcium 1.13 mmol/L (1.15-1.35)
[2022-01-07 03:35] LABS: Basophils % 0.2 %; Hematocrit 24.9 % (37.5-50.1); Lymphocytes # 0.6 K/mcL (0.6-4.6); Lymphocytes % 2.9 %; Mean Corpuscular HGB Conc 32.1 g/dL (31.6-35.5); Mean Corpuscular Hemoglobin 32.1 pg (28.0-33.3); Monocytes # 0.7 K/mcL (0.0-1.3); Monocytes % 3.3 %; Neutrophils # 18.7 K/mcL (1.6-8.9); Platelet Count 289 K/mcL (140-400); Red Blood Count 2.49 M/mcL (4.19-5.50); Red Cell Distribution Width 21.9 % (11.5-14.5); Segmented Neutrophils % 91.6 %; White Blood Count 20.4 K/mcL (4.3-11.1)
[2022-01-07 03:45] LABS: ABG Base Excess 0 mEq/L (-2 to 3); ABG HCO3 24 mEq/L (21-27); ABG Oxygen Saturation 100 % (95-98); ABG PCO2 38 mmHg (35-45); ABG PH 7.42 pH Units (7.32-7.45); ABG PO2 231 mmHg (85-104); ABG TCO2 25 mEq/L (20-26); Blood Gas VT 480 cc
[2022-01-07] MEDS: FentaNYL (PF) 1,000 MCG/100 ML IV.SOLN IVC SCH ×3 (03:49→16:01)
[2022-01-07 04:09] LABS: Alanine Aminotransferase 12 Units/L (7-52); Albumin 2.5 g/dL (3.5-5.7); Alkaline Phosphatase 60 Units/L (34-104); Aspartate Amino Transferase 18 Units/L (13-39); BUN/Creatinine Ratio 22 (6-26); Bilirubin,Total 2.2 mg/dL (0.3-1.0); Blood Urea Nitrogen 18 mg/dL (8-23); Calcium 8.4 mg/dL (8.6-10.3); Carbon Dioxide 22 mEq/L (23-29); Chloride 108 mEq/L (98-107); Globulin 2.5 g/dL (2.4-3.5); Glucose 124 mg/dL (70-105); Magnesium 1.9 mg/dL (1.6-2.6); Osmolality,Calculated 289 (280-300); Phosphorous 4.4 mg/dL (2.7-4.5); Potassium 4.9 mEq/L (3.5-5.1); Sodium 138 mEq/L (136-145); eGFR For African Americans > 60 (> 60); eGFR For Non-African Americans > 60 (> 60)
[2022-01-07 04:23] LABS: Anisocytosis 2+ (Not Present); Macrocytosis Present (Not Present); Platelet Estimate Normal (Normal)
[2022-01-07] MEDS: Acetaminophen IV 1,000 MG/100 ML BAG IVPB SCH (04:23)
[2022-01-07] MEDS: *HR* Metoprolol 5 MG/5 ML VIAL IVP SCH (04:24)
[2022-01-07 05:33] LABS: BUN/Creatinine Ratio 23 (6-26); Blood Urea Nitrogen 19 mg/dL (8-23); Calcium 8.4 mg/dL (8.6-10.3); Carbon Dioxide 21 mEq/L (23-29); Chloride 108 mEq/L (98-107); Glucose 128 mg/dL (70-105); Osmolality,Calculated 288 (280-300); Sodium 137 mEq/L (136-145); eGFR For African Americans > 60 (> 60); eGFR For Non-African Americans > 60 (> 60)
[2022-01-07] MEDS: *HR* Heparin 5,000 UNIT/ML VIAL SQ SCH ×2 (05:43→17:38)
[2022-01-07] MEDS: Piperacillin/Tazobactam 3.375 GM in 0.9 % Sodium Chloride Mini Bag 100 ML IVPB SCH ×2 (10:02→16:00)
[2022-01-07] MEDS: Pantoprazole 40 MG VIAL IVP SCH (10:03)
[2022-01-07] MEDS: Chlorhexidine Rinse 15 ML MOUTHWASH MM SCH (10:03)
[2022-01-07] MEDS: Fluconazole 400 MG/200 ML 400 MG/200 ML BAG IVPB SCH (10:03)
[2022-01-07] MEDS: Ringers Solution, Lactated 1,000 ML IVC SCH ×2 (10:59→21:09)
[2022-01-07] MEDS ORDERED: *HR* Metoprolol 5 MG/5 ML VIAL IVP PRN (11:20)
[2022-01-07] MEDS ORDERED: Clinimix E 5%-20% SOLUTION 2,000 ML, Amino Acids 10% 200 ML with MVI, adult with vita... IVC SCH (17:00)
[2022-01-08] MEDS: Insulin LISPRO 300 UNITS/3 ML VIAL SUBQ SCH ×7 (00:23→23:26)
[2022-01-08] MEDS: Artificial Tears SOLN 15 ML BOTTLE BOTH EYES SCH ×7 (00:23→23:18)
[2022-01-08] MEDS: Piperacillin/Tazobactam 3.375 GM in 0.9 % Sodium Chloride Mini Bag 100 ML IVPB SCH ×4 (00:24→23:18)
[2022-01-08] MEDS: FentaNYL (PF) 1,000 MCG/100 ML IV.SOLN IVC SCH ×3 (00:24→12:57)
[2022-01-08 03:46] LABS: ABG Base Excess 0 mEq/L (-2 to 3); ABG HCO3 25 mEq/L (21-27); ABG Oxygen Saturation 95 % (95-98); ABG PCO2 41 mmHg (35-45); ABG PH 7.39 pH Units (7.32-7.45); ABG PO2 78 mmHg (85-104); ABG TCO2 26 mEq/L (20-26); Blood Gas Modality AF; Blood Gas VT 480 cc
[2022-01-08 04:36] LABS: Basophils % 0.1 %; Hematocrit 23.5 % (37.5-50.1); Hemoglobin 7.2 g/dL (12.9-16.9); Immature Granulocytes % 3.6 % (0-4); Lymphocytes # 0.5 K/mcL (0.6-4.6); Lymphocytes % 2.9 %; Mean Corpuscular HGB Conc 30.6 g/dL (31.6-35.5); Mean Corpuscular Hemoglobin 31.4 pg (28.0-33.3); Mean Corpuscular Volume 102.6 fL (83.0-100.0); Mean Platelet Volume 10.1 fL (9.4-12.4); Monocytes # 0.9 K/mcL (0.0-1.3); Monocytes % 5.4 %; Neutrophils # 15.3 K/mcL (1.6-8.9); Platelet Count 391 K/mcL (140-400); Red Blood Count 2.29 M/mcL (4.19-5.50); Red Cell Distribution Width 22.5 % (11.5-14.5); White Blood Count 17.4 K/mcL (4.3-11.1)
[2022-01-08 04:54] LABS: Alanine Aminotransferase 15 Units/L (7-52); Albumin 2.4 g/dL (3.5-5.7); Albumin/Globulin Ratio 0.9 (1.1-2.2); Alkaline Phosphatase 62 Units/L (34-104); Aspartate Amino Transferase 21 Units/L (13-39); BUN/Creatinine Ratio 28 (6-26); Bilirubin,Total 1.3 mg/dL (0.3-1.0); Blood Urea Nitrogen 23 mg/dL (8-23); Calcium 8.5 mg/dL (8.6-10.3); Carbon Dioxide 25 mEq/L (23-29); Chloride 110 mEq/L (98-107); Globulin 2.7 g/dL (2.4-3.5); Glucose 147 mg/dL (70-105); Magnesium 2.3 mg/dL (1.6-2.6); Osmolality,Calculated 298 (280-300); Phosphorous 3.2 mg/dL (2.7-4.5); Potassium 4.5 mEq/L (3.5-5.1); Sodium 141 mEq/L (136-145); Total Protein 5.1 g/dL (6.4-8.9); Triglycerides 253 mg/dL (< 150); eGFR For African Americans > 60 (> 60); eGFR For Non-African Americans > 60 (> 60)
[2022-01-08] MEDS: *HR* Heparin 5,000 UNIT/ML VIAL SQ SCH ×2 (06:09→17:48)
[2022-01-08] MEDS: Fluconazole 400 MG/200 ML 400 MG/200 ML BAG IVPB SCH (07:50)
[2022-01-08] MEDS: Chlorhexidine Rinse 15 ML MOUTHWASH MM SCH ×2 (07:51→20:19)
[2022-01-08] MEDS: Pantoprazole 40 MG VIAL IVP SCH (07:51)
[2022-01-08] MEDS ORDERED: *HR* HYDROmorphone PCA *PREMADE* 20 MG/1MG/ML (20mL) PCA VIAL IVC PRN ×2 (12:27→13:28)
[2022-01-08] MEDS ORDERED: Clinimix E 5%-20% SOLUTION 2,000 ML, Amino Acids 10% 200 ML with MVI, adult with vita... IVC SCH (17:00)
[2022-01-08] MEDS: 0.9 % Sodium Chloride 1,000 ML IVC SCH (20:19)
[2022-01-09] MEDS: Artificial Tears SOLN 15 ML BOTTLE BOTH EYES SCH ×6 (03:29→23:35)
[2022-01-09] MEDS: Insulin LISPRO 300 UNITS/3 ML VIAL SUBQ SCH ×6 (03:30→23:37)
[2022-01-09] MEDS: *HR* Heparin 5,000 UNIT/ML VIAL SQ SCH ×2 (05:58→16:39)
[2022-01-09] MEDS: Piperacillin/Tazobactam 3.375 GM in 0.9 % Sodium Chloride Mini Bag 100 ML IVPB SCH ×3 (07:33→23:35)
[2022-01-09] MEDS: Fluconazole 400 MG/200 ML 400 MG/200 ML BAG IVPB SCH (07:33)
[2022-01-09] MEDS: Pantoprazole 40 MG VIAL IVP SCH ×2 (07:33→16:45)
[2022-01-09] MEDS: Chlorhexidine Rinse 15 ML MOUTHWASH MM SCH ×2 (07:33→20:40)
[2022-01-09 09:35] LABS: Alanine Aminotransferase 35 Units/L (7-52); Albumin 2.7 g/dL (3.5-5.7); Albumin/Globulin Ratio 0.9 (1.1-2.2); Alkaline Phosphatase 90 Units/L (34-104); Aspartate Amino Transferase 36 Units/L (13-39); BUN/Creatinine Ratio 27 (6-26); Blood Urea Nitrogen 23 mg/dL (8-23); Calcium 8.9 mg/dL (8.6-10.3); Carbon Dioxide 29 mEq/L (23-29); Chloride 111 mEq/L (98-107); Glucose 120 mg/dL (70-105); Osmolality,Calculated 303 (280-300); Potassium 4.7 mEq/L (3.5-5.1); Sodium 144 mEq/L (136-145); Total Protein 5.7 g/dL (6.4-8.9); eGFR For African Americans > 60 (> 60); eGFR For Non-African Americans > 60 (> 60)
[2022-01-09] MEDS: Ketorolac 30 MG/ML VIAL IVP PRN ×2 (11:45→17:05)
[2022-01-09] MEDS ORDERED: *HR* Labetalol 20 MG/4 ML SYRINGE IVP PRN (13:29)
[2022-01-09] MEDS ORDERED: *HR* Labetalol 20 MG/4 ML SYRINGE IVP ONE (14:33)
[2022-01-09] MEDS: 0.9 % Sodium Chloride 1,000 ML IVC SCH ×2 (14:41→23:09)
[2022-01-09] MEDS: niCARdipine 20 MG/200 ML MLS IVC SCH ×2 (15:34→17:51)
[2022-01-09] MEDS ORDERED: Clinimix E 5%-20% SOLUTION 2,000 ML, Amino Acids 10% 200 ML with MVI, adult with vita... IVC SCH (17:00)
[2022-01-09] MEDS: niCARdipine 40 MG in 0.9 % Sodium Chloride 184 ML IVC SCH ×2 (20:32→23:34)
[2022-01-09] MEDS: *HR* HYDROmorphone PCA *PREMADE* 20 MG/1MG/ML (20mL) PCA VIAL IVC PRN (20:40)
[2022-01-10 02:53] LABS: Basophils # 0.1 K/mcL (0.0-0.2); Basophils % 0.8 %; Eosinophils # 0.1 K/mcL (0.0-0.6); Eosinophils % 0.5 %; Hematocrit 28.5 % (37.5-50.1); Hemoglobin 8.5 g/dL (12.9-16.9); Immature Granulocytes % 6.1 % (0-4); Lymphocytes % 6.3 %; Mean Corpuscular HGB Conc 29.8 g/dL (31.6-35.5); Mean Corpuscular Hemoglobin 31.8 pg (28.0-33.3); Mean Platelet Volume 9.3 fL (9.4-12.4); Monocytes % 6.4 %; Nucleated Red Blood Cells 0.2 /100 WBC (0); Platelet Count 432 K/mcL (140-400); Red Blood Count 2.67 M/mcL (4.19-5.50); Red Cell Distribution Width 22.2 % (11.5-14.5); Segmented Neutrophils % 79.9 %; White Blood Count 15.8 K/mcL (4.3-11.1)
[2022-01-10 02:57] LABS: Mean Corpuscular Volume 106.7 fL (83.0-100.0); Neutrophils # 12.6 K/mcL (1.6-8.9)
[2022-01-10 03:12] LABS: BUN/Creatinine Ratio 28 (6-26); Blood Urea Nitrogen 28 mg/dL (8-23); Calcium 8.6 mg/dL (8.6-10.3); Carbon Dioxide 27 mEq/L (23-29); Chloride 110 mEq/L (98-107); Glucose 116 mg/dL (70-105); Osmolality,Calculated 302 (280-300); Potassium 4.5 mEq/L (3.5-5.1); Sodium 143 mEq/L (136-145); eGFR For African Americans > 60 (> 60); eGFR For Non-African Americans > 60 (> 60)
[2022-01-10 03:25] LABS: Alanine Aminotransferase 32 Units/L (7-52); Albumin 2.5 g/dL (3.5-5.7); Albumin/Globulin Ratio 0.8 (1.1-2.2); Alkaline Phosphatase 86 Units/L (34-104); Aspartate Amino Transferase 31 Units/L (13-39); Phosphorous 3.5 mg/dL (2.7-4.5); Total Protein 5.5 g/dL (6.4-8.9)
[2022-01-10] MEDS: Artificial Tears SOLN 15 ML BOTTLE BOTH EYES SCH ×6 (03:52→23:00)
[2022-01-10] MEDS: Insulin LISPRO 300 UNITS/3 ML VIAL SUBQ SCH ×5 (03:56→20:12)
[2022-01-10] MEDS: niCARdipine 40 MG in 0.9 % Sodium Chloride 184 ML IVC SCH ×2 (04:03→19:53)
[2022-01-10 04:36] LABS: Anisocytosis 2+ (Not Present); Hypochromasia Present (Not Present)
[2022-01-10] MEDS: *HR* Heparin 5,000 UNIT/ML VIAL SQ SCH ×2 (05:56→18:10)
[2022-01-10] MEDS: Pantoprazole 40 MG VIAL IVP SCH ×2 (05:57→18:09)
[2022-01-10] MEDS ORDERED: Furosemide 40 MG/4 ML VIAL IVP ONE (07:13)
[2022-01-10] MEDS ORDERED: *HR* Metoprolol 5 MG/5 ML VIAL IVP PRN (07:14)
[2022-01-10] MEDS: Chlorhexidine Rinse 15 ML MOUTHWASH MM SCH ×2 (08:20→20:00)
[2022-01-10] MEDS: Piperacillin/Tazobactam 3.375 GM in 0.9 % Sodium Chloride Mini Bag 100 ML IVPB SCH ×3 (08:20→22:58)
[2022-01-10] MEDS: Fluconazole 400 MG/200 ML 400 MG/200 ML BAG IVPB SCH (08:21)
[2022-01-10] MEDS: *HR* HYDROmorphone PCA *PREMADE* 20 MG/1MG/ML (20mL) PCA VIAL IVC PRN (12:06)
[2022-01-10] MEDS: Acetaminophen IV 1,000 MG/100 ML BAG IVPB SCH ×3 (12:22→22:59)
[2022-01-10] MEDS ORDERED: Saline Nasal Spray 44 ML BOTTLE NS PRN (15:26)
[2022-01-10] MEDS ORDERED: Clinimix E 5%-20% SOLUTION 2,000 ML, Amino Acids 10% 200 ML with MVI, adult with vita... IVC SCH (17:00)
[2022-01-10] MEDS: 0.9 % Sodium Chloride 1,000 ML IVC SCH (17:41)
[2022-01-10] MEDS: Furosemide 40 MG/4 ML VIAL IVP SCH (19:58)
[2022-01-11] MEDS: Insulin LISPRO 300 UNITS/3 ML VIAL SUBQ SCH ×7 (00:39→23:40)
[2022-01-11] MEDS: niCARdipine 40 MG in 0.9 % Sodium Chloride 184 ML IVC SCH ×3 (00:39→21:17)
[2022-01-11] MEDS: Pantoprazole 40 MG VIAL IVP SCH (05:45)
[2022-01-11] MEDS: Acetaminophen IV 1,000 MG/100 ML BAG IVPB SCH ×4 (05:46→23:39)
[2022-01-11] MEDS: *HR* Heparin 5,000 UNIT/ML VIAL SQ SCH ×2 (05:46→17:15)
[2022-01-11] MEDS: Artificial Tears SOLN 15 ML BOTTLE BOTH EYES SCH ×6 (05:47→23:38)
[2022-01-11] MEDS: *HR* HYDROmorphone PCA *PREMADE* 20 MG/1MG/ML (20mL) PCA VIAL IVC PRN ×2 (06:59→08:00)
[2022-01-11] MEDS: Chlorhexidine Rinse 15 ML MOUTHWASH MM SCH ×2 (09:32→21:19)
[2022-01-11] MEDS: Fluconazole 400 MG/200 ML 400 MG/200 ML BAG IVPB SCH (09:32)
[2022-01-11] MEDS: Piperacillin/Tazobactam 3.375 GM in 0.9 % Sodium Chloride Mini Bag 100 ML IVPB SCH ×3 (09:33→23:38)
[2022-01-11] MEDS: Ketorolac 30 MG/ML VIAL IVP PRN (09:33)
[2022-01-11] MEDS: Furosemide 40 MG/4 ML VIAL IVP SCH ×2 (09:33→21:18)
[2022-01-11] MEDS ORDERED: *HR* FentaNYL (PF) 100 MCG/2 ML VIAL IVP ONE (09:43)
[2022-01-11 10:20] LABS: Hemoglobin 8.8 g/dL (12.9-16.9); Mean Corpuscular HGB Conc 31.4 g/dL (31.6-35.5); Mean Platelet Volume 9.4 fL (9.4-12.4); Platelet Count 456 K/mcL (140-400); Red Blood Count 2.75 M/mcL (4.19-5.50); Red Cell Distribution Width 20.2 % (11.5-14.5); White Blood Count 10.6 K/mcL (4.3-11.1)
[2022-01-11 10:24] LABS: Mean Corpuscular Volume 101.8 fL (83.0-100.0)
[2022-01-11 10:39] LABS: Alanine Aminotransferase 43 Units/L (7-52); Albumin 2.6 g/dL (3.5-5.7); Albumin/Globulin Ratio 0.8 (1.1-2.2); Alkaline Phosphatase 79 Units/L (34-104); Aspartate Amino Transferase 47 Units/L (13-39); BUN/Creatinine Ratio 27 (6-26); Bilirubin,Total 3.9 mg/dL (0.3-1.0); Blood Urea Nitrogen 25 mg/dL (8-23); Calcium 8.9 mg/dL (8.6-10.3); Carbon Dioxide 26 mEq/L (23-29); Chloride 106 mEq/L (98-107); Globulin 3.1 g/dL (2.4-3.5); Glucose 133 mg/dL (70-105); Magnesium 1.8 mg/dL (1.6-2.6); Osmolality,Calculated 294 (280-300); Phosphorous 4.1 mg/dL (2.7-4.5); Potassium 4.1 mEq/L (3.5-5.1); Sodium 139 mEq/L (136-145); Total Protein 5.7 g/dL (6.4-8.9); eGFR For African Americans > 60 (> 60); eGFR For Non-African Americans > 60 (> 60)
[2022-01-11 15:12] LABS: Dohle Bodies Present (Not Present); Eosinophils # 0.4 K/mcL (0.0-0.6); Lymphocytes # 0.9 K/mcL (0.6-4.6); Monocytes # 0.6 K/mcL (0.0-1.3); Neutrophils # 8.7 K/mcL (1.6-8.9); Toxic Vacuolation Present (Not Present)
[2022-01-11 15:13] LABS: Anisocytosis 2+ (Not Present); Polychromasia 1+ (Not Present)
[2022-01-11] MEDS ORDERED: Clinimix E 5%-20% SOLUTION 2,000 ML, Amino Acids 10% 200 ML with MVI, adult with vita... IVC SCH (17:00)
[2022-01-11] MEDS: Vancomycin 1,250 MG/262.5 ML IV.SOLN IVPB SCH (17:15)
[2022-01-11] MEDS: *HR* FentaNYL (PF) 100 MCG/2 ML VIAL IVP PRN ×2 (18:06→21:19)
[2022-01-11] MEDS: 0.9 % Sodium Chloride 1,000 ML IVC SCH (21:16)
[2022-01-12] MEDS: niCARdipine 40 MG in 0.9 % Sodium Chloride 184 ML IVC SCH (01:47)
[2022-01-12] MEDS: Artificial Tears SOLN 15 ML BOTTLE BOTH EYES SCH ×6 (04:44→23:36)
[2022-01-12] MEDS: Insulin LISPRO 300 UNITS/3 ML VIAL SUBQ SCH ×6 (04:45→23:38)
[2022-01-12] MEDS: *HR* FentaNYL (PF) 100 MCG/2 ML VIAL IVP PRN ×2 (04:46→09:24)
[2022-01-12] MEDS: *HR* Heparin 5,000 UNIT/ML VIAL SQ SCH ×2 (04:46→16:38)
[2022-01-12] MEDS: Vancomycin 1,250 MG/262.5 ML IV.SOLN IVPB SCH ×2 (04:47→16:40)
[2022-01-12] MEDS: Acetaminophen IV 1,000 MG/100 ML BAG IVPB SCH ×4 (04:48→23:38)
[2022-01-12 05:46] LABS: Basophils # 0.1 K/mcL (0.0-0.2); Basophils % 0.5 %; Eosinophils # 0.2 K/mcL (0.0-0.6); Eosinophils % 1.6 %; Hematocrit 27.6 % (37.5-50.1); Hemoglobin 8.8 g/dL (12.9-16.9); Immature Granulocytes % 4.3 % (0-4); Lymphocytes # 0.9 K/mcL (0.6-4.6); Mean Corpuscular HGB Conc 31.9 g/dL (31.6-35.5); Mean Corpuscular Volume 100.4 fL (83.0-100.0); Mean Platelet Volume 9.8 fL (9.4-12.4); Monocytes % 8.8 %; Nucleated Red Blood Cells 0.2 /100 WBC (0); Platelet Count 441 K/mcL (140-400); Red Blood Count 2.75 M/mcL (4.19-5.50); Red Cell Distribution Width 19.5 % (11.5-14.5); Segmented Neutrophils % 76.8 %; White Blood Count 11.8 K/mcL (4.3-11.1)
[2022-01-12 06:01] LABS: Neutrophils # 9.1 K/mcL (1.6-8.9)
[2022-01-12 06:05] LABS: Alanine Aminotransferase 47 Units/L (7-52); Albumin 2.6 g/dL (3.5-5.7); Albumin/Globulin Ratio 0.8 (1.1-2.2); Alkaline Phosphatase 82 Units/L (34-104); Aspartate Amino Transferase 45 Units/L (13-39); BUN/Creatinine Ratio 31 (6-26); Bilirubin,Total 3.7 mg/dL (0.3-1.0); Blood Urea Nitrogen 30 mg/dL (8-23); Calcium 9.1 mg/dL (8.6-10.3); Carbon Dioxide 27 mEq/L (23-29); Chloride 102 mEq/L (98-107); Globulin 3.4 g/dL (2.4-3.5); Glucose 137 mg/dL (70-105); Magnesium 1.9 mg/dL (1.6-2.6); Osmolality,Calculated 292 (280-300); Phosphorous 3.6 mg/dL (2.7-4.5); Potassium 3.6 mEq/L (3.5-5.1); Sodium 137 mEq/L (136-145); eGFR For African Americans > 60 (> 60); eGFR For Non-African Americans > 60 (> 60)
[2022-01-12] MEDS: Chlorhexidine Rinse 15 ML MOUTHWASH MM SCH ×2 (07:23→19:37)
[2022-01-12] MEDS: Fluconazole 400 MG/200 ML 400 MG/200 ML BAG IVPB SCH (07:24)
[2022-01-12] MEDS: Furosemide 40 MG/4 ML VIAL IVP SCH ×2 (07:24→19:37)
[2022-01-12] MEDS: Piperacillin/Tazobactam 3.375 GM in 0.9 % Sodium Chloride Mini Bag 100 ML IVPB SCH ×3 (07:24→23:39)
[2022-01-12] MEDS ORDERED: Pantoprazole 40 MG VIAL IVP SCH (09:00)
[2022-01-12] MEDS ORDERED: *HR* Labetalol 20 MG/4 ML SYRINGE IVP PRN (10:42)
[2022-01-12] MEDS ORDERED: D5% in Water 1,000 ML IVC PRN (10:42)
[2022-01-12] MEDS ORDERED: D10% in Water 500 ML IVC PRN (10:42)
[2022-01-12] MEDS ORDERED: Ipratropium/Albuterol Neb 3 ML IH PRN (10:42)
[2022-01-12] MEDS ORDERED: Clinimix E 5%-20% SOLUTION 2,000 ML, Amino Acids 10% 200 ML with MVI, adult with vita... IVC SCH ×2 (10:42→17:00)
[2022-01-12] MEDS ORDERED: Saline Nasal Spray 44 ML BOTTLE NS PRN (10:42)
[2022-01-12] MEDS ORDERED: *HR* FentaNYL (PF) 100 MCG/2 ML VIAL IVP PRN (10:42)
[2022-01-12] MEDS ORDERED: *HR* Metoprolol 5 MG/5 ML VIAL IVP PRN ×2 (10:42→11:20)
[2022-01-12] MEDS ORDERED: Ketorolac 30 MG/ML VIAL IVP PRN (10:42)
[2022-01-12] MEDS ORDERED: Dextrose Gel 15 GM/37.5 ML TUBE PO PRN ×2 (10:42)
[2022-01-12] MEDS ORDERED: Artificial Tears SOLN 15 ML BOTTLE BOTH EYES PRN (10:42)
[2022-01-12] MEDS ORDERED: Naloxone 0.4 MG/ML INJ IVP PRN (10:42)
[2022-01-12] MEDS ORDERED: Ondansetron 4 MG/2 ML VIAL IVP PRN (10:42)
[2022-01-12] MEDS ORDERED: *HR* Dextrose 50 % in Water (Syg) 50 ML SYRINGE IVP PRN (10:42)
[2022-01-12] MEDS: *HR* HYDROmorphone (PF) 1 MG/ML SYRINGE IVP PRN ×2 (19:38→23:51)
[2022-01-13] MEDS: Artificial Tears SOLN 15 ML BOTTLE BOTH EYES SCH ×3 (03:32→13:34)
[2022-01-13] MEDS: Insulin LISPRO 300 UNITS/3 ML VIAL SUBQ SCH ×5 (04:20→19:50)
[2022-01-13 06:15] LABS: Hematocrit 31.3 % (37.5-50.1); Hemoglobin 10.1 g/dL (12.9-16.9); Immature Platelets 5.2 % (1.1-6.1); Mean Corpuscular HGB Conc 32.3 g/dL (31.6-35.5); Mean Corpuscular Volume 99.1 fL (83.0-100.0); Mean Platelet Volume 10.5 fL (9.4-12.4); Red Blood Count 3.16 M/mcL (4.19-5.50); Red Cell Distribution Width 19.4 % (11.5-14.5)
[2022-01-13] MEDS: *HR* Heparin 5,000 UNIT/ML VIAL SQ SCH ×2 (06:16→18:08)
[2022-01-13 07:38] LABS: Alanine Aminotransferase 74 Units/L (7-52); Albumin 2.8 g/dL (3.5-5.7); Albumin/Globulin Ratio 0.8 (1.1-2.2); Alkaline Phosphatase 115 Units/L (34-104); Aspartate Amino Transferase 78 Units/L (13-39); BUN/Creatinine Ratio 31 (6-26); Bilirubin,Total 2.7 mg/dL (0.3-1.0); Blood Urea Nitrogen 43 mg/dL (8-23); Calcium 9.1 mg/dL (8.6-10.3); Carbon Dioxide 18 mEq/L (23-29); Chloride 102 mEq/L (98-107); Globulin 3.5 g/dL (2.4-3.5); Glucose 77 mg/dL (70-105); Magnesium 2.2 mg/dL (1.6-2.6); Osmolality,Calculated 292 (280-300); Phosphorous 5.5 mg/dL (2.7-4.5); Potassium 4.2 mEq/L (3.5-5.1); Sodium 136 mEq/L (136-145); Total Protein 6.3 g/dL (6.4-8.9); eGFR For African Americans > 60 (> 60); eGFR For Non-African Americans 52 (> 60)
[2022-01-13] MEDS: Fluconazole 400 MG/200 ML 400 MG/200 ML BAG IVPB SCH (07:59)
[2022-01-13] MEDS ORDERED: 0.9 % Sodium Chloride 1,000 ML IVC SCH (08:00)
[2022-01-13] MEDS: Vancomycin 1,250 MG/262.5 ML IV.SOLN IVPB SCH ×2 (08:08→17:58)
[2022-01-13] MEDS: Pantoprazole 40 MG VIAL IVP SCH (08:18)
[2022-01-13] MEDS: Furosemide 40 MG/4 ML VIAL IVP SCH (08:18)
[2022-01-13] MEDS: Chlorhexidine Rinse 15 ML MOUTHWASH MM SCH ×2 (08:21→21:14)
[2022-01-13] MEDS: *HR* HYDROmorphone (PF) 1 MG/ML SYRINGE IVP PRN ×3 (08:28→21:14)
[2022-01-13] MEDS: Acetaminophen IV 1,000 MG/100 ML BAG IVPB SCH ×2 (08:44→13:35)
[2022-01-13] MEDS: Piperacillin/Tazobactam 3.375 GM in 0.9 % Sodium Chloride Mini Bag 100 ML IVPB SCH ×2 (10:29→16:00)
[2022-01-13] MEDS ORDERED: Clinimix 5%-20% SOLUTION 2,000 ML with Amino Acids 10% 200 ML, MVI, adult with vitami... IVC SCH (17:00)
[2022-01-14] MEDS: Insulin LISPRO 300 UNITS/3 ML VIAL SUBQ SCH ×7 (00:12→22:58)
[2022-01-14] MEDS: Acetaminophen IV 1,000 MG/100 ML BAG IVPB SCH ×4 (00:31→23:00)
[2022-01-14] MEDS: Piperacillin/Tazobactam 3.375 GM in 0.9 % Sodium Chloride Mini Bag 100 ML IVPB SCH ×4 (00:32→22:59)
[2022-01-14] MEDS: *HR* HYDROmorphone (PF) 1 MG/ML SYRINGE IVP PRN ×4 (00:32→12:38)
[2022-01-14] MEDS: *HR* Heparin 5,000 UNIT/ML VIAL SQ SCH ×2 (05:53→17:58)
[2022-01-14 06:18] LABS: Alanine Aminotransferase 62 Units/L (7-52); Albumin 2.7 g/dL (3.5-5.7); Albumin/Globulin Ratio 0.7 (1.1-2.2); Alkaline Phosphatase 120 Units/L (34-104); Aspartate Amino Transferase 34 Units/L (13-39); BUN/Creatinine Ratio 44 (6-26); Bilirubin,Total 2.4 mg/dL (0.3-1.0); Blood Urea Nitrogen 52 mg/dL (8-23); Calcium 9.1 mg/dL (8.6-10.3); Carbon Dioxide 24 mEq/L (23-29); Chloride 103 mEq/L (98-107); Globulin 3.7 g/dL (2.4-3.5); Glucose 139 mg/dL (70-105); Magnesium 2.3 mg/dL (1.6-2.6); Osmolality,Calculated 298 (280-300); Phosphorous 3.6 mg/dL (2.7-4.5); Potassium 3.5 mEq/L (3.5-5.1); Sodium 136 mEq/L (136-145); Total Protein 6.4 g/dL (6.4-8.9); Triglycerides 261 mg/dL (< 150); eGFR For African Americans > 60 (> 60); eGFR For Non-African Americans > 60 (> 60)
[2022-01-14] MEDS ORDERED: Iopamidol - 370 500 ML MLS PO ONE (08:52)
[2022-01-14] MEDS: Pantoprazole 40 MG VIAL IVP SCH (09:15)
[2022-01-14] MEDS: Fluconazole 400 MG/200 ML 400 MG/200 ML BAG IVPB SCH (09:46)
[2022-01-14 11:54] LABS: Hematocrit 28.3 % (37.5-50.1); Hemoglobin 8.9 g/dL (12.9-16.9); Mean Corpuscular HGB Conc 31.4 g/dL (31.6-35.5); Mean Corpuscular Hemoglobin 31.9 pg (28.0-33.3); Mean Corpuscular Volume 101.4 fL (83.0-100.0); Mean Platelet Volume 9.9 fL (9.4-12.4); Platelet Count 419 K/mcL (140-400); Red Blood Count 2.79 M/mcL (4.19-5.50); Red Cell Distribution Width 19.1 % (11.5-14.5); White Blood Count 19.7 K/mcL (4.3-11.1)
[2022-01-14] MEDS: Chlorhexidine Rinse 15 ML MOUTHWASH MM SCH ×2 (12:55→19:00)
[2022-01-14 12:57] LABS: Basophils # 0.2 K/mcL (0.0-0.2); Lymphocytes # 0.6 K/mcL (0.6-4.6); Monocytes # 1.8 K/mcL (0.0-1.3); Neutrophils # 14.8 K/mcL (1.6-8.9)
[2022-01-14 12:59] LABS: Nucleated Red Blood Cells 1 /100 WBC (0)
[2022-01-14 13:00] LABS: Anisocytosis 1+ (Not Present); Polychromasia 1+ (Not Present); Toxic Granulation Present (Not Present)
[2022-01-14] MEDS ORDERED: *HR* Propofol 200 MG/20 ML VIAL IVP ONE (13:10)
[2022-01-14] MEDS ORDERED: Lidocaine -MPF 2% 2 ML VIAL ONE (13:11)
[2022-01-14] MEDS ORDERED: *HR* Rocuronium Bromide 50 MG/5 ML VIAL ONE (13:11)
[2022-01-14] MEDS ORDERED: *HR* FentaNYL (PF) 100 MCG/2 ML VIAL ONE ×2 (13:15→15:17)
[2022-01-14] MEDS ORDERED: Lidocaine HCL 4 ML Topical Solution (Laryng-O-Jet Kit Sterile Pak) TP ONE (13:16)
[2022-01-14] MEDS ORDERED: *HR* Succinylcholine 200 MG/10 ML VIAL IVP ONE (13:16)
[2022-01-14] MEDS ORDERED: Albumin Human 5% 12.5 GM/250 ML IV.SOLN ONE (14:14)
[2022-01-14] MEDS ORDERED: *HR* Vasopressin 20 UNIT/ML VIAL ONE (14:15)
[2022-01-14] MEDS ORDERED: Ketamine HCL *QUVA* 50mg (1mL) SYRINGE ONE ×2 (15:15→16:07)
[2022-01-14] MEDS ORDERED: Ondansetron 4 MG/2 ML VIAL ONE (15:34)
[2022-01-14] MEDS ORDERED: *HR* HYDROMORPHONE 2 MG/ML VIAL ONE (15:55)
[2022-01-14] MEDS ORDERED: Sugammadex Sodium 200 MG/2 ML VIAL IV ONE (15:55)
[2022-01-14] MEDS ORDERED: Promethazine 6.25 MG in Water for inj. (sterile) 20 ML IVPB PRN (16:33)
[2022-01-14] MEDS ORDERED: Clinimix E 5%-20% SOLUTION 2,000 ML, Amino Acids 10% 200 ML with MVI, adult with vita... IVC SCH ×2 (17:00)
[2022-01-14] MEDS: diazePAM 10 MG/2 ML SYRINGE IVP SCH ×2 (17:56→22:52)
[2022-01-15] MEDS: Insulin LISPRO 300 UNITS/3 ML VIAL SUBQ SCH ×5 (04:17→22:15)
[2022-01-15 04:33] LABS: Hemoglobin 8.5 g/dL (12.9-16.9); Mean Corpuscular Hemoglobin 32.2 pg (28.0-33.3); Red Blood Count 2.64 M/mcL (4.19-5.50); Red Cell Distribution Width 18.6 % (11.5-14.5)
[2022-01-15 04:35] LABS: Mean Corpuscular HGB Conc 31.5 g/dL (31.6-35.5); Mean Corpuscular Volume 102.3 fL (83.0-100.0); Mean Platelet Volume 9.8 fL (9.4-12.4); Platelet Count 360 K/mcL (140-400); White Blood Count 25.7 K/mcL (4.3-11.1)
[2022-01-15 04:53] LABS: Alanine Aminotransferase 70 Units/L (7-52); Albumin 2.7 g/dL (3.5-5.7); Albumin/Globulin Ratio 0.8 (1.1-2.2); Alkaline Phosphatase 127 Units/L (34-104); Aspartate Amino Transferase 49 Units/L (13-39); BUN/Creatinine Ratio 42 (6-26); Blood Urea Nitrogen 37 mg/dL (8-23); Calcium 8.9 mg/dL (8.6-10.3); Carbon Dioxide 22 mEq/L (23-29); Chloride 105 mEq/L (98-107); Globulin 3.4 g/dL (2.4-3.5); Glucose 167 mg/dL (70-105); Magnesium 2.2 mg/dL (1.6-2.6); Osmolality,Calculated 294 (280-300); Phosphorous 3.1 mg/dL (2.7-4.5); Potassium 4.4 mEq/L (3.5-5.1); Sodium 136 mEq/L (136-145); Total Protein 6.1 g/dL (6.4-8.9); eGFR For African Americans > 60 (> 60); eGFR For Non-African Americans > 60 (> 60)
[2022-01-15 05:30] LABS: Anisocytosis 1+ (Not Present); Hypochromasia Present (Not Present); Lymphocytes # 2.1 K/mcL (0.6-4.6); Neutrophils # 21.1 K/mcL (1.6-8.9); Platelet Estimate Normal (Normal)
[2022-01-15 05:31] LABS: Toxic Granulation Present (Not Present)
[2022-01-15] MEDS: Acetaminophen IV 1,000 MG/100 ML BAG IVPB SCH ×2 (05:44→17:51)
[2022-01-15] MEDS: *HR* Heparin 5,000 UNIT/ML VIAL SQ SCH ×2 (05:44→17:42)
[2022-01-15] MEDS: Fluconazole 400 MG/200 ML 400 MG/200 ML BAG IVPB SCH (08:12)
[2022-01-15] MEDS: Piperacillin/Tazobactam 3.375 GM in 0.9 % Sodium Chloride Mini Bag 100 ML IVPB SCH ×2 (08:13→15:53)
[2022-01-15] MEDS: Pantoprazole 40 MG VIAL IVP SCH (08:13)
[2022-01-15] MEDS: diazePAM 10 MG/2 ML SYRINGE IVP SCH ×2 (08:14→15:49)
[2022-01-15] MEDS: Chlorhexidine Rinse 15 ML MOUTHWASH MM SCH ×2 (08:14→22:20)
[2022-01-15] MEDS: *HR* FentaNYL (PF) 100 MCG/2 ML VIAL IVP PRN ×2 (11:28→15:49)
[2022-01-15] MEDS ORDERED: Clinimix E 5%-20% SOLUTION 2,000 ML, Amino Acids 10% 200 ML with MVI, adult with vita... IVC SCH ×2 (17:00)
[2022-01-16] MEDS ORDERED: *HR* Metoprolol 5 MG/5 ML VIAL IVP PRN
[2022-01-16] MEDS ORDERED: Artificial Tears SOLN 15 ML BOTTLE BOTH EYES PRN
[2022-01-16] MEDS ORDERED: *HR* FentaNYL (PF) 100 MCG/2 ML VIAL IVP PRN
[2022-01-16] MEDS ORDERED: Ipratropium/Albuterol Neb 3 ML IH PRN
[2022-01-16] MEDS ORDERED: Saline Nasal Spray 44 ML BOTTLE NS PRN
[2022-01-16] MEDS ORDERED: *HR* Dextrose 50 % in Water (Syg) 50 ML SYRINGE IVP PRN
[2022-01-16] MEDS ORDERED: Dextrose Gel 15 GM/37.5 ML TUBE PO PRN ×2
[2022-01-16] MEDS ORDERED: Naloxone 0.4 MG/ML INJ IVP PRN
[2022-01-16] MEDS ORDERED: D10% in Water 500 ML IVC PRN
[2022-01-16] MEDS ORDERED: D5% in Water 1,000 ML IVC PRN
[2022-01-16] MEDS: Insulin LISPRO 300 UNITS/3 ML VIAL SUBQ SCH ×6 (00:28→22:05)
[2022-01-16] MEDS: Acetaminophen IV 1,000 MG/100 ML BAG IVPB SCH ×4 (00:29→17:40)
[2022-01-16] MEDS: Piperacillin/Tazobactam 3.375 GM in 0.9 % Sodium Chloride Mini Bag 100 ML IVPB SCH ×3 (00:30→17:22)
[2022-01-16] MEDS: diazePAM 10 MG/2 ML SYRINGE IVP SCH ×3 (00:30→17:41)
[2022-01-16 02:20] LABS: Hematocrit 28.3 % (37.5-50.1); Hemoglobin 8.8 g/dL (12.9-16.9); Mean Corpuscular HGB Conc 31.1 g/dL (31.6-35.5); Nucleated Red Blood Cells 0.1 /100 WBC (0); Red Cell Distribution Width 18.1 % (11.5-14.5)
[2022-01-16 02:22] LABS: Mean Corpuscular Hemoglobin 31.7 pg (28.0-33.3); Mean Corpuscular Volume 101.8 fL (83.0-100.0); Mean Platelet Volume 9.8 fL (9.4-12.4); Platelet Count 367 K/mcL (140-400); Red Blood Count 2.78 M/mcL (4.19-5.50); White Blood Count 27.1 K/mcL (4.3-11.1)
[2022-01-16 02:39] LABS: Alanine Aminotransferase 173 Units/L (7-52); Albumin 2.5 g/dL (3.5-5.7); Albumin/Globulin Ratio 0.8 (1.1-2.2); Alkaline Phosphatase 170 Units/L (34-104); Aspartate Amino Transferase 145 Units/L (13-39); BUN/Creatinine Ratio 42 (6-26); Bilirubin,Total 1.6 mg/dL (0.3-1.0); Blood Urea Nitrogen 34 mg/dL (8-23); Calcium 8.6 mg/dL (8.6-10.3); Carbon Dioxide 23 mEq/L (23-29); Chloride 105 mEq/L (98-107); Globulin 3.3 g/dL (2.4-3.5); Glucose 124 mg/dL (70-105); Osmolality,Calculated 291 (280-300); Potassium 4.2 mEq/L (3.5-5.1); Sodium 136 mEq/L (136-145); Total Protein 5.8 g/dL (6.4-8.9); eGFR For African Americans > 60 (> 60); eGFR For Non-African Americans > 60 (> 60)
[2022-01-16 02:40] LABS: Anisocytosis 1+ (Not Present); Lymphocytes # 1.1 K/mcL (0.6-4.6); Macrocytosis Present (Not Present); Monocytes # 0.5 K/mcL (0.0-1.3); Neutrophils # 23.9 K/mcL (1.6-8.9); Phosphorous 2.9 mg/dL (2.7-4.5); Platelet Estimate Normal (Normal)
[2022-01-16] MEDS: *HR* HYDROmorphone (PF) 1 MG/ML SYRINGE IVP PRN ×4 (04:29→22:03)
[2022-01-16] MEDS: *HR* Heparin 5,000 UNIT/ML VIAL SQ SCH ×2 (05:24→17:27)
[2022-01-16] MEDS: Pantoprazole 40 MG VIAL IVP SCH (10:02)
[2022-01-16] MEDS: Chlorhexidine Rinse 15 ML MOUTHWASH MM SCH ×2 (10:02→22:03)
[2022-01-16] MEDS: Fluconazole 400 MG/200 ML 400 MG/200 ML BAG IVPB SCH (10:05)
[2022-01-16] MEDS ORDERED: Clinimix E 5%-20% SOLUTION 2,000 ML, Amino Acids 10% 200 ML with MVI, adult with vita... IVC SCH ×3 (17:00)
[2022-01-16] MEDS: Ondansetron 4 MG/2 ML VIAL IVP PRN (17:26)
[2022-01-17] MEDS: Piperacillin/Tazobactam 3.375 GM in 0.9 % Sodium Chloride Mini Bag 100 ML IVPB SCH ×4 (02:35→17:35)
[2022-01-17] MEDS: diazePAM 10 MG/2 ML SYRINGE IVP SCH ×4 (02:37→23:01)
[2022-01-17] MEDS: Acetaminophen IV 1,000 MG/100 ML BAG IVPB SCH ×2 (02:39→09:19)
[2022-01-17] MEDS: Insulin LISPRO 300 UNITS/3 ML VIAL SUBQ SCH ×6 (02:40→20:10)
[2022-01-17] MEDS: *HR* Heparin 5,000 UNIT/ML VIAL SQ SCH ×2 (06:16→17:04)
[2022-01-17 06:18] LABS: Alanine Aminotransferase 181 Units/L (7-52); Albumin 2.6 g/dL (3.5-5.7); Albumin/Globulin Ratio 0.8 (1.1-2.2); Alkaline Phosphatase 205 Units/L (34-104); Aspartate Amino Transferase 63 Units/L (13-39); BUN/Creatinine Ratio 29 (6-26); Bilirubin,Total 1.6 mg/dL (0.3-1.0); Blood Urea Nitrogen 24 mg/dL (8-23); Calcium 8.6 mg/dL (8.6-10.3); Carbon Dioxide 22 mEq/L (23-29); Chloride 102 mEq/L (98-107); Globulin 3.2 g/dL (2.4-3.5); Glucose 120 mg/dL (70-105); Osmolality,Calculated 275 (280-300); Potassium 4.4 mEq/L (3.5-5.1); Sodium 130 mEq/L (136-145); Total Protein 5.8 g/dL (6.4-8.9); eGFR For African Americans > 60 (> 60); eGFR For Non-African Americans > 60 (> 60)
[2022-01-17 06:30] LABS: Magnesium < 0.5 mg/dL (1.6-2.6); Phosphorous 3.7 mg/dL (2.7-4.5)
[2022-01-17] MEDS ORDERED: Iopamidol - 370 500 ML MLS IVP ONE (08:07)
[2022-01-17 09:00] LABS: Nucleated Red Blood Cells 0.3 /100 WBC (0); Red Cell Distribution Width 18.2 % (11.5-14.5)
[2022-01-17 09:01] LABS: Hematocrit 28.9 % (37.5-50.1); Hemoglobin 9.1 g/dL (12.9-16.9); Lymphocytes # 1.5 K/mcL (0.6-4.6); Mean Corpuscular HGB Conc 31.5 g/dL (31.6-35.5); Mean Corpuscular Hemoglobin 32.2 pg (28.0-33.3); Mean Corpuscular Volume 102.1 fL (83.0-100.0); Mean Platelet Volume 9.8 fL (9.4-12.4); Platelet Count 348 K/mcL (140-400); Red Blood Count 2.83 M/mcL (4.19-5.50); White Blood Count 29.6 K/mcL (4.3-11.1)
[2022-01-17] MEDS: Pantoprazole 40 MG VIAL IVP SCH (09:17)
[2022-01-17] MEDS: Fluconazole 400 MG/200 ML 400 MG/200 ML BAG IVPB SCH (09:18)
[2022-01-17] MEDS: Chlorhexidine Rinse 15 ML MOUTHWASH MM SCH ×2 (09:18→20:12)
[2022-01-17 09:19] LABS: BUN/Creatinine Ratio 26 (6-26); Blood Urea Nitrogen 22 mg/dL (8-23); Calcium 8.6 mg/dL (8.6-10.3); Carbon Dioxide 24 mEq/L (23-29); Chloride 99 mEq/L (98-107); Glucose 142 mg/dL (70-105); Magnesium 1.8 mg/dL (1.6-2.6); Osmolality,Calculated 274 (280-300); Potassium 4.4 mEq/L (3.5-5.1); Sodium 129 mEq/L (136-145); eGFR For African Americans > 60 (> 60); eGFR For Non-African Americans > 60 (> 60)
[2022-01-17] MEDS: *HR* HYDROmorphone (PF) 1 MG/ML SYRINGE IVP PRN ×3 (09:41→17:00)
[2022-01-17] MEDS: Ondansetron 4 MG/2 ML VIAL IVP PRN (09:42)
[2022-01-17 10:16] LABS: Eosinophils # 0.3 K/mcL (0.0-0.6); Monocytes # 2.1 K/mcL (0.0-1.3); Neutrophils # 23.7 K/mcL (1.6-8.9)
[2022-01-17 10:17] LABS: Anisocytosis 1+ (Not Present); Hypochromasia Present (Not Present); Platelet Estimate Normal (Normal); Polychromasia 1+ (Not Present); Toxic Granulation Present (Not Present)
[2022-01-17] MEDS ORDERED: Clinimix E 5%-20% SOLUTION 2,000 ML, Amino Acids 10% 200 ML with MVI, adult with vita... IVC SCH ×2 (17:00)
[2022-01-17] MEDS: Cefepime HCl 2,000 MG in 0.9 % Sodium Chloride 10 ML IVP SCH (17:04)
[2022-01-17] MEDS: MetroNIDAZOLE 500 MG/100 ML 500 MG/100 ML BAG IVPB SCH ×2 (17:10→23:17)
[2022-01-17] MEDS: Vancomycin 1,250 MG/262.5 ML IV.SOLN IVPB SCH (17:10)
[2022-01-17] MEDS: Acetaminophen IV 500 MG/50 ML BAG IVPB SCH ×2 (18:40→23:13)
[2022-01-18] MEDS: *HR* HYDROmorphone (PF) 1 MG/ML SYRINGE IVP PRN ×3 (00:11→22:45)
[2022-01-18] MEDS: Cefepime HCl 2,000 MG in 0.9 % Sodium Chloride 10 ML IVP SCH ×3 (00:12→16:19)
[2022-01-18] MEDS: Insulin LISPRO 300 UNITS/3 ML VIAL SUBQ SCH ×6 (00:17→21:02)
[2022-01-18] MEDS: Vancomycin 1,250 MG/262.5 ML IV.SOLN IVPB SCH ×2 (06:09→17:39)
[2022-01-18] MEDS: Acetaminophen IV 500 MG/50 ML BAG IVPB SCH ×4 (06:15→23:37)
[2022-01-18] MEDS: *HR* Heparin 5,000 UNIT/ML VIAL SQ SCH ×2 (06:18→17:28)
[2022-01-18 06:20] LABS: Hematocrit 28.9 % (37.5-50.1); Hemoglobin 9.1 g/dL (12.9-16.9); Mean Corpuscular HGB Conc 31.5 g/dL (31.6-35.5); Mean Corpuscular Hemoglobin 31.9 pg (28.0-33.3); Mean Corpuscular Volume 101.4 fL (83.0-100.0); Mean Platelet Volume 9.6 fL (9.4-12.4); Nucleated Red Blood Cells 0.2 /100 WBC (0); Platelet Count 316 K/mcL (140-400); Red Blood Count 2.85 M/mcL (4.19-5.50); Red Cell Distribution Width 18.4 % (11.5-14.5); White Blood Count 27.9 K/mcL (4.3-11.1)
[2022-01-18 06:43] LABS: Alanine Aminotransferase 125 Units/L (7-52); Albumin 2.7 g/dL (3.5-5.7); Albumin/Globulin Ratio 0.8 (1.1-2.2); Alkaline Phosphatase 195 Units/L (34-104); Aspartate Amino Transferase 36 Units/L (13-39); BUN/Creatinine Ratio 29 (6-26); Bilirubin,Total 1.5 mg/dL (0.3-1.0); Blood Urea Nitrogen 22 mg/dL (8-23); Calcium 8.9 mg/dL (8.6-10.3); Carbon Dioxide 22 mEq/L (23-29); Chloride 103 mEq/L (98-107); Globulin 3.3 g/dL (2.4-3.5); Glucose 132 mg/dL (70-105); Magnesium 2.1 mg/dL (1.6-2.6); Osmolality,Calculated 281 (280-300); Phosphorous 3.8 mg/dL (2.7-4.5); Potassium 4.3 mEq/L (3.5-5.1); Sodium 133 mEq/L (136-145); eGFR For African Americans > 60 (> 60); eGFR For Non-African Americans > 60 (> 60)
[2022-01-18 06:54] LABS: Lymphocytes # 1.7 K/mcL (0.6-4.6); Monocytes # 1.1 K/mcL (0.0-1.3); Neutrophils # 22.3 K/mcL (1.6-8.9); Platelet Estimate Normal (Normal)
[2022-01-18 06:55] LABS: Anisocytosis 1+ (Not Present); Hypochromasia Present (Not Present); Polychromasia 1+ (Not Present); Stomatocytes 1+ (Not Present)
[2022-01-18] MEDS: Fluconazole 400 MG/200 ML 400 MG/200 ML BAG IVPB SCH (09:10)
[2022-01-18] MEDS: MetroNIDAZOLE 500 MG/100 ML 500 MG/100 ML BAG IVPB SCH ×3 (09:10→23:39)
[2022-01-18] MEDS: Gabapentin 400 MG CAPSULE PO SCH ×3 (09:11→21:10)
[2022-01-18] MEDS: Pantoprazole 40 MG VIAL IVP SCH (09:11)
[2022-01-18] MEDS: Chlorhexidine Rinse 15 ML MOUTHWASH MM SCH ×2 (09:11→21:10)
[2022-01-18] MEDS: diazePAM 10 MG/2 ML SYRINGE IVP SCH ×3 (10:41→23:35)
[2022-01-18 12:03] LABS: Bacteria,Urine Few per hpf (None-Few); Bilirubin,Urine Negative (Negative); Blood,Urine Negative (Negative); Clarity,Urine Turbid (Clear); Color,Urine Yellow (Yellow); Glucose,Urine (UA) Normal (Normal); Granular Casts,Urine Few per lpf (None Seen); Hyaline Casts,Urine Few per lpf (None Seen); Ketones,Urine Negative (Negative); Leukocyte Esterase,Urine Negative (Negative); Mucus,Urine Few per lpf (None-Few); Nitrite,Urine Negative (Negative); Protein,Urine 50 mg/dL (Neg-Trace); RBC,Urine 0-3 per hpf (0-3); Renal Epithelial Cells,Urine Few per hpf (None-Few); Transitional Epi Cells,Urine Few per hpf (None-Few); Urobilinogen,Urine Normal (Normal); WBC,Urine 0-3 per hpf (0-3)
[2022-01-18] MEDS ORDERED: diazePAM 10 MG/2 ML SYRINGE IVP ONE (13:43)
[2022-01-18] MEDS ORDERED: *HR* HYDROmorphone (PF) 1 MG/ML SYRINGE IVP ONE (13:43)
[2022-01-18] MEDS ORDERED: Clinimix E 5%-20% SOLUTION 2,000 ML, Amino Acids 10% 200 ML with MVI, adult with vita... IVC SCH (17:00)
[2022-01-19] MEDS: Insulin LISPRO 300 UNITS/3 ML VIAL SUBQ SCH ×6 (00:13→20:44)
[2022-01-19] MEDS: Cefepime HCl 2,000 MG in 0.9 % Sodium Chloride 10 ML IVP SCH ×3 (00:17→18:12)
[2022-01-19 02:06] LABS: Alanine Aminotransferase 123 Units/L (7-52); Albumin 2.6 g/dL (3.5-5.7); Albumin/Globulin Ratio 0.8 (1.1-2.2); Alkaline Phosphatase 205 Units/L (34-104); Aspartate Amino Transferase 53 Units/L (13-39); BUN/Creatinine Ratio 29 (6-26); Bilirubin,Total 1.4 mg/dL (0.3-1.0); Blood Urea Nitrogen 24 mg/dL (8-23); Calcium 8.7 mg/dL (8.6-10.3); Carbon Dioxide 22 mEq/L (23-29); Chloride 103 mEq/L (98-107); Globulin 3.3 g/dL (2.4-3.5); Glucose 133 mg/dL (70-105); Magnesium 1.9 mg/dL (1.6-2.6); Osmolality,Calculated 278 (280-300); Phosphorous 3.3 mg/dL (2.7-4.5); Potassium 4.4 mEq/L (3.5-5.1); Sodium 131 mEq/L (136-145); Total Protein 5.9 g/dL (6.4-8.9); eGFR For African Americans > 60 (> 60); eGFR For Non-African Americans > 60 (> 60)
[2022-01-19] MEDS: Vancomycin 1,250 MG/262.5 ML IV.SOLN IVPB SCH (04:33)
[2022-01-19] MEDS: *HR* Heparin 5,000 UNIT/ML VIAL SQ SCH ×2 (05:40→18:14)
[2022-01-19] MEDS: Acetaminophen IV 500 MG/50 ML BAG IVPB SCH ×2 (05:40→11:21)
[2022-01-19] MEDS ORDERED: diazePAM 10 MG/2 ML SYRINGE IVP ONE (06:30)
[2022-01-19] MEDS ORDERED: *HR* HYDROmorphone (PF) 1 MG/ML SYRINGE IVP ONE (06:30)
[2022-01-19] MEDS ORDERED: Gabapentin 400 MG CAPSULE PO ONE (06:33)
[2022-01-19 07:28] LABS: Hematocrit 28.2 % (37.5-50.1); Hemoglobin 8.9 g/dL (12.9-16.9); Mean Corpuscular HGB Conc 31.6 g/dL (31.6-35.5); Mean Corpuscular Hemoglobin 32.6 pg (28.0-33.3); Mean Corpuscular Volume 103.3 fL (83.0-100.0); Mean Platelet Volume 9.7 fL (9.4-12.4); Platelet Count 292 K/mcL (140-400); Red Blood Count 2.73 M/mcL (4.19-5.50); Red Cell Distribution Width 18.3 % (11.5-14.5); White Blood Count 26.1 K/mcL (4.3-11.1)
[2022-01-19 08:21] LABS: Neutrophils # 21.9 K/mcL (1.6-8.9); Platelet Estimate Normal (Normal)
[2022-01-19] MEDS: Fluconazole 400 MG/200 ML 400 MG/200 ML BAG IVPB SCH (09:06)
[2022-01-19] MEDS: Chlorhexidine Rinse 15 ML MOUTHWASH MM SCH (09:06)
[2022-01-19] MEDS: Gabapentin 400 MG CAPSULE PO SCH ×3 (09:06→20:48)
[2022-01-19] MEDS: MetroNIDAZOLE 500 MG/100 ML 500 MG/100 ML BAG IVPB SCH ×2 (09:06→18:12)
[2022-01-19] MEDS: Pantoprazole 40 MG VIAL IVP SCH (09:06)
[2022-01-19] MEDS ORDERED: Acetaminophen 325 MG TABLET PO PRN (09:40)
[2022-01-19] MEDS ORDERED: methocarbamoL 500 MG TABLET PO ONE (09:41)
[2022-01-19] MEDS: *HR* OxyCODONE Immed Rel 5 MG TABLET PO PRN ×2 (11:10→23:16)
[2022-01-19] MEDS: Ibuprofen 600 MG TABLET PO SCH ×3 (11:19→18:13)
[2022-01-19] MEDS ORDERED: Clinimix 5%-20% SOLUTION 2,000 ML, Amino Acids 10% 200 ML with MVI, adult with vitami... IVC SCH (17:00)
[2022-01-19] MEDS: Vancomycin 1,500 MG/265 ML IV.SOLN IVPB SCH (18:08)
[2022-01-19] MEDS: methocarbamoL 500 MG TABLET PO SCH (18:13)
[2022-01-19] MEDS: Metoprolol XL (24 HR) Succ 25 MG TAB.ER.24H PO SCH (18:13)
[2022-01-19] MEDS: *HR* OxyCODONE ER (12 HR) 10 MG TABLET PO SCH (20:45)
[2022-01-19] MEDS: diazePAM 5 MG TABLET PO SCH (20:45)
[2022-01-20] MEDS: Insulin LISPRO 300 UNITS/3 ML VIAL SUBQ SCH ×6 (00:14→20:21)
[2022-01-20] MEDS: Cefepime HCl 2,000 MG in 0.9 % Sodium Chloride 10 ML IVP SCH ×3 (00:19→17:11)
[2022-01-20] MEDS: methocarbamoL 500 MG TABLET PO SCH ×3 (00:19→15:27)
[2022-01-20] MEDS: MetroNIDAZOLE 500 MG/100 ML 500 MG/100 ML BAG IVPB SCH ×3 (00:19→23:04)
[2022-01-20 02:09] LABS: Hematocrit 31.4 % (37.5-50.1); Hemoglobin 9.8 g/dL (12.9-16.9); Mean Corpuscular HGB Conc 31.2 g/dL (31.6-35.5); Mean Corpuscular Hemoglobin 31.9 pg (28.0-33.3); Mean Corpuscular Volume 102.3 fL (83.0-100.0); Mean Platelet Volume 9.5 fL (9.4-12.4); Nucleated Red Blood Cells 0.1 /100 WBC (0); Platelet Count 329 K/mcL (140-400); Red Blood Count 3.07 M/mcL (4.19-5.50); Red Cell Distribution Width 17.9 % (11.5-14.5); White Blood Count 24.6 K/mcL (4.3-11.1)
[2022-01-20 02:27] LABS: BUN/Creatinine Ratio 31 (6-26); Blood Urea Nitrogen 24 mg/dL (8-23); Calcium 8.8 mg/dL (8.6-10.3); Carbon Dioxide 21 mEq/L (23-29); Chloride 103 mEq/L (98-107); Glucose 141 mg/dL (70-105); Osmolality,Calculated 276 (280-300); Phosphorous 3.4 mg/dL (2.7-4.5); Potassium 4.6 mEq/L (3.5-5.1); Sodium 130 mEq/L (136-145); eGFR For African Americans > 60 (> 60); eGFR For Non-African Americans > 60 (> 60)
[2022-01-20 02:41] LABS: Neutrophils # 19.2 K/mcL (1.6-8.9)
[2022-01-20 02:42] LABS: Anisocytosis 1+ (Not Present); Hypochromasia Present (Not Present); Platelet Estimate Normal (Normal); Polychromasia 1+ (Not Present)
[2022-01-20] MEDS: *HR* Heparin 5,000 UNIT/ML VIAL SQ SCH ×3 (05:48→17:07)
[2022-01-20] MEDS: *HR* OxyCODONE Immed Rel 5 MG TABLET PO PRN ×2 (05:50→12:18)
[2022-01-20] MEDS: Vancomycin 1,500 MG/265 ML IV.SOLN IVPB SCH ×2 (05:50→17:12)
[2022-01-20] MEDS: Fluconazole 400 MG/200 ML 400 MG/200 ML BAG IVPB SCH (08:15)
[2022-01-20] MEDS: *HR* OxyCODONE ER (12 HR) 10 MG TABLET PO SCH ×2 (08:16→20:22)
[2022-01-20] MEDS: Metoprolol XL (24 HR) Succ 25 MG TAB.ER.24H PO SCH (08:16)
[2022-01-20] MEDS: diazePAM 5 MG TABLET PO SCH ×2 (08:16→20:22)
[2022-01-20] MEDS: Ibuprofen 600 MG TABLET PO SCH ×2 (08:16→15:26)
[2022-01-20] MEDS: Gabapentin 400 MG CAPSULE PO SCH ×3 (08:17→20:22)
[2022-01-20] MEDS ORDERED: Iopamidol - 370 500 ML MLS IVP ONE (08:21)
[2022-01-20] MEDS ORDERED: *HR* FentaNYL (PF) 100 MCG/2 ML VIAL ONE ×2 (12:52→14:49)
[2022-01-20] MEDS ORDERED: *HR* Propofol 200 MG/20 ML VIAL IVP ONE (12:52)
[2022-01-20] MEDS ORDERED: Lidocaine HCL 4 ML Topical Solution (Laryng-O-Jet Kit Sterile Pak) TP ONE (12:53)
[2022-01-20] MEDS ORDERED: Lidocaine -MPF 2% 2 ML VIAL ONE (12:53)
[2022-01-20] MEDS ORDERED: Ondansetron 4 MG/2 ML VIAL ONE (12:53)
[2022-01-20] MEDS ORDERED: *HR* Rocuronium Bromide 50 MG/5 ML VIAL ONE (12:53)
[2022-01-20] MEDS ORDERED: *HR* Succinylcholine 200 MG/10 ML VIAL IVP ONE (12:55)
[2022-01-20] MEDS ORDERED: Albumin Human 5% 12.5 GM/250 ML IV.SOLN ONE (13:40)
[2022-01-20] MEDS ORDERED: *HR* HYDROmorphone PF 0.5 MG/0.5 ML SYRINGE IVP PRN (14:03)
[2022-01-20] MEDS ORDERED: Sugammadex Sodium 200 MG/2 ML VIAL IV ONE (15:23)
[2022-01-20] MEDS ORDERED: *HR* HYDROMORPHONE 2 MG/ML VIAL ONE (15:32)
[2022-01-20] MEDS ORDERED: Ipratropium/Albuterol Neb 3 ML IH PRN (16:52)
[2022-01-20] MEDS ORDERED: D5% in Water 1,000 ML IVC PRN (16:52)
[2022-01-20] MEDS ORDERED: D10% in Water 500 ML IVC PRN (16:52)
[2022-01-20] MEDS ORDERED: Acetaminophen 325 MG TABLET PO PRN (16:52)
[2022-01-20] MEDS ORDERED: Ondansetron 4 MG/2 ML VIAL IVP PRN (16:52)
[2022-01-20] MEDS ORDERED: Artificial Tears SOLN 15 ML BOTTLE BOTH EYES PRN (16:52)
[2022-01-20] MEDS ORDERED: *HR* Dextrose 50 % in Water (Syg) 50 ML SYRINGE IVP PRN (16:52)
[2022-01-20] MEDS ORDERED: Naloxone 0.4 MG/ML INJ IVP PRN (16:52)
[2022-01-20] MEDS ORDERED: Clinimix 5%-20% SOLUTION 2,000 ML, Amino Acids 10% 200 ML with MVI, adult with vitami... IVC SCH ×3 (16:52→17:00)
[2022-01-20] MEDS ORDERED: *HR* Metoprolol 5 MG/5 ML VIAL IVP PRN (16:52)
[2022-01-20] MEDS ORDERED: Saline Nasal Spray 44 ML BOTTLE NS PRN (16:52)
[2022-01-20] MEDS ORDERED: Dextrose Gel 15 GM/37.5 ML TUBE PO PRN ×2 (16:52)
[2022-01-20] MEDS ORDERED: Ibuprofen 600 MG TABLET PO SCH (21:00)
[2022-01-21] MEDS: Cefepime HCl 2,000 MG in 0.9 % Sodium Chloride 10 ML IVP SCH ×3 (00:58→16:16)
[2022-01-21] MEDS: methocarbamoL 500 MG TABLET PO SCH ×3 (00:58→16:13)
[2022-01-21] MEDS: MetroNIDAZOLE 500 MG/100 ML 500 MG/100 ML BAG IVPB SCH ×3 (00:58→16:14)
[2022-01-21] MEDS: Insulin LISPRO 300 UNITS/3 ML VIAL SUBQ SCH ×6 (00:58→19:29)
[2022-01-21] MEDS: *HR* OxyCODONE Immed Rel 5 MG TABLET PO PRN ×2 (01:12→07:16)
[2022-01-21 05:09] LABS: Mean Corpuscular HGB Conc 31.1 g/dL (31.6-35.5); Mean Platelet Volume 9.6 fL (9.4-12.4); Red Cell Distribution Width 17.3 % (11.5-14.5)
[2022-01-21 05:11] LABS: Hematocrit 29.3 % (37.5-50.1); Hemoglobin 9.1 g/dL (12.9-16.9); Mean Corpuscular Volume 103.2 fL (83.0-100.0); Platelet Count 333 K/mcL (140-400); Red Blood Count 2.84 M/mcL (4.19-5.50)
[2022-01-21] MEDS: *HR* Heparin 5,000 UNIT/ML VIAL SQ SCH ×2 (06:07→16:14)
[2022-01-21] MEDS: Vancomycin 1,500 MG/265 ML IV.SOLN IVPB SCH ×2 (06:08→16:15)
[2022-01-21] MEDS: *HR* OxyCODONE ER (12 HR) 10 MG TABLET PO SCH ×2 (06:10→21:14)
[2022-01-21 06:43] LABS: BUN/Creatinine Ratio 37 (6-26); Blood Urea Nitrogen 25 mg/dL (8-23); Carbon Dioxide 20 mEq/L (23-29); Chloride 105 mEq/L (98-107); Glucose 173 mg/dL (70-105); Osmolality,Calculated 283 (280-300); Phosphorous 3.4 mg/dL (2.7-4.5); Potassium 5.2 mEq/L (3.5-5.1); Sodium 132 mEq/L (136-145); eGFR For African Americans > 60 (> 60); eGFR For Non-African Americans > 60 (> 60)
[2022-01-21 06:49] LABS: White Blood Count 35.7 K/mcL (4.3-11.1)
[2022-01-21 07:10] LABS: Anisocytosis 1+ (Not Present); Lymphocytes # 2.1 K/mcL (0.6-4.6); Macrocytosis Present (Not Present); Monocytes # 0.7 K/mcL (0.0-1.3); Neutrophils # 32.8 K/mcL (1.6-8.9); Platelet Estimate Normal (Normal)
[2022-01-21] MEDS ORDERED: Calcium Gluconate 1gm/50mL 1 GM/50 ML BAG IVPB ONE (07:58)
[2022-01-21] MEDS ORDERED: *HR* Dextrose 50 % in Water (Syg) 50 ML SYRINGE IVP ONE ×2 (07:59→10:15)
[2022-01-21] MEDS: Acetaminophen IV 1,000 MG/100 ML BAG IVPB SCH ×3 (08:10→16:17)
[2022-01-21] MEDS: Fluconazole 400 MG/200 ML 400 MG/200 ML BAG IVPB SCH (08:11)
[2022-01-21] MEDS: diazePAM 5 MG TABLET PO SCH ×2 (08:12→21:14)
[2022-01-21] MEDS: Metoprolol XL (24 HR) Succ 25 MG TAB.ER.24H PO SCH (08:12)
[2022-01-21] MEDS: Gabapentin 400 MG CAPSULE PO SCH ×3 (08:12→21:14)
[2022-01-21] MEDS ORDERED: Insulin Human Regular 10 UNIT in 0.9 % Sodium Chloride 10 ML IV ONE (08:15)
[2022-01-21] MEDS ORDERED: Clinimix 5%-20% SOLUTION 2,000 ML, Amino Acids 10% 200 ML with MVI, adult with vitami... IVC SCH (17:00)
[2022-01-22] MEDS: Insulin LISPRO 300 UNITS/3 ML VIAL SUBQ SCH ×7 (00:08→23:30)
[2022-01-22] MEDS: Cefepime HCl 2,000 MG in 0.9 % Sodium Chloride 10 ML IVP SCH ×3 (00:09→16:17)
[2022-01-22] MEDS: MetroNIDAZOLE 500 MG/100 ML 500 MG/100 ML BAG IVPB SCH ×4 (00:09→23:33)
[2022-01-22] MEDS: Acetaminophen IV 1,000 MG/100 ML BAG IVPB SCH ×5 (00:09→23:31)
[2022-01-22] MEDS: methocarbamoL 500 MG TABLET PO SCH ×4 (00:26→23:30)
[2022-01-22 03:13] LABS: Red Cell Distribution Width 17.5 % (11.5-14.5)
[2022-01-22 03:14] LABS: Basophils # 0.1 K/mcL (0.0-0.2); Basophils % 0.2 %; Eosinophils # 0.2 K/mcL (0.0-0.6); Eosinophils % 0.6 %; Hematocrit 27.6 % (37.5-50.1); Hemoglobin 8.6 g/dL (12.9-16.9); Immature Granulocytes % 9.4 % (0-4); Lymphocytes # 1.8 K/mcL (0.6-4.6); Lymphocytes % 6.9 %; Mean Corpuscular HGB Conc 31.2 g/dL (31.6-35.5); Mean Corpuscular Hemoglobin 31.9 pg (28.0-33.3); Mean Corpuscular Volume 102.2 fL (83.0-100.0); Mean Platelet Volume 9.4 fL (9.4-12.4); Monocytes # 1.4 K/mcL (0.0-1.3); Monocytes % 5.4 %; Platelet Count 311 K/mcL (140-400); Segmented Neutrophils % 77.5 %
[2022-01-22 03:19] LABS: BUN/Creatinine Ratio 37 (6-26); Blood Urea Nitrogen 26 mg/dL (8-23); Calcium 8.9 mg/dL (8.6-10.3); Carbon Dioxide 21 mEq/L (23-29); Chloride 104 mEq/L (98-107); Glucose 137 mg/dL (70-105); Magnesium 1.8 mg/dL (1.6-2.6); Neutrophils # 20.2 K/mcL (1.6-8.9); Osmolality,Calculated 283 (280-300); Phosphorous 3.3 mg/dL (2.7-4.5); Potassium 4.6 mEq/L (3.5-5.1); Sodium 133 mEq/L (136-145); eGFR For African Americans > 60 (> 60); eGFR For Non-African Americans > 60 (> 60)
[2022-01-22 03:52] LABS: Anisocytosis 1+ (Not Present); Hypochromasia Present (Not Present); Platelet Estimate Normal (Normal)
[2022-01-22] MEDS: Vancomycin 1,500 MG/265 ML IV.SOLN IVPB SCH ×2 (06:30→16:19)
[2022-01-22] MEDS: *HR* Heparin 5,000 UNIT/ML VIAL SQ SCH ×2 (06:31→16:18)
[2022-01-22] MEDS: Fluconazole 400 MG/200 ML 400 MG/200 ML BAG IVPB SCH (08:31)
[2022-01-22] MEDS: Gabapentin 400 MG CAPSULE PO SCH ×3 (08:34→21:15)
[2022-01-22] MEDS: *HR* OxyCODONE ER (12 HR) 10 MG TABLET PO SCH ×2 (08:34→21:15)
[2022-01-22] MEDS: Metoprolol XL (24 HR) Succ 25 MG TAB.ER.24H PO SCH (08:34)
[2022-01-22] MEDS: diazePAM 5 MG TABLET PO SCH ×2 (08:34→21:15)
[2022-01-22] MEDS: *HR* OxyCODONE Immed Rel 5 MG TABLET PO PRN (14:36)
[2022-01-22] MEDS ORDERED: Clinimix E 5%-20% SOLUTION 2,000 ML, Amino Acids 10% 200 ML with MVI, adult with vita... IVC SCH (17:00)
[2022-01-23] MEDS: Cefepime HCl 2,000 MG in 0.9 % Sodium Chloride 10 ML IVP SCH ×3 (00:47→14:28)
[2022-01-23] MEDS: Insulin LISPRO 300 UNITS/3 ML VIAL SUBQ SCH ×4 (04:47→16:23)
[2022-01-23 05:07] LABS: Mean Platelet Volume 9.3 fL (9.4-12.4); Nucleated Red Blood Cells 0.1 /100 WBC (0)
[2022-01-23 05:08] LABS: Hematocrit 30.6 % (37.5-50.1); Hemoglobin 9.4 g/dL (12.9-16.9); Mean Corpuscular HGB Conc 30.7 g/dL (31.6-35.5); Mean Corpuscular Hemoglobin 31.2 pg (28.0-33.3); Mean Corpuscular Volume 101.7 fL (83.0-100.0); Platelet Count 288 K/mcL (140-400); Red Blood Count 3.01 M/mcL (4.19-5.50); Red Cell Distribution Width 17.6 % (11.5-14.5); White Blood Count 26.3 K/mcL (4.3-11.1)
[2022-01-23 05:18] LABS: BUN/Creatinine Ratio 31 (6-26); Blood Urea Nitrogen 22 mg/dL (8-23); Carbon Dioxide 22 mEq/L (23-29); Chloride 102 mEq/L (98-107); Glucose 118 mg/dL (70-105); Magnesium 1.7 mg/dL (1.6-2.6); Osmolality,Calculated 276 (280-300); Phosphorous 3.8 mg/dL (2.7-4.5); Potassium 4.5 mEq/L (3.5-5.1); Sodium 131 mEq/L (136-145); eGFR For African Americans > 60 (> 60); eGFR For Non-African Americans > 60 (> 60)
[2022-01-23] MEDS: Acetaminophen IV 1,000 MG/100 ML BAG IVPB SCH ×3 (05:38→17:00)
[2022-01-23] MEDS: *HR* Heparin 5,000 UNIT/ML VIAL SQ SCH ×2 (05:38→15:54)
[2022-01-23] MEDS: Vancomycin 1,500 MG/265 ML IV.SOLN IVPB SCH ×2 (05:39→15:53)
[2022-01-23 06:10] LABS: Eosinophils # 1.6 K/mcL (0.0-0.6); Lymphocytes # 2.1 K/mcL (0.6-4.6); Monocytes # 1.6 K/mcL (0.0-1.3)
[2022-01-23 06:11] LABS: Platelet Estimate Normal (Normal)
[2022-01-23] MEDS: Fluconazole 400 MG/200 ML 400 MG/200 ML BAG IVPB SCH (08:50)
[2022-01-23] MEDS: MetroNIDAZOLE 500 MG/100 ML 500 MG/100 ML BAG IVPB SCH ×2 (08:51→14:29)
[2022-01-23] MEDS: *HR* OxyCODONE ER (12 HR) 10 MG TABLET PO SCH ×2 (08:52→20:17)
[2022-01-23] MEDS: methocarbamoL 500 MG TABLET PO SCH ×2 (08:52→14:30)
[2022-01-23] MEDS: Metoprolol XL (24 HR) Succ 25 MG TAB.ER.24H PO SCH (08:52)
[2022-01-23] MEDS: Gabapentin 400 MG CAPSULE PO SCH ×3 (08:52→20:17)
[2022-01-23] MEDS: diazePAM 5 MG TABLET PO SCH ×2 (08:52→20:17)
[2022-01-23] MEDS ORDERED: Clinimix 5%-20% SOLUTION 2,000 ML, Amino Acids 10% 200 ML with MVI, adult with vitami... IVC SCH ×3 (12:00→17:00)
[2022-01-23] MEDS: Ketorolac 30 MG/ML VIAL IVP SCH (17:01)
[2022-01-24] MEDS: MetroNIDAZOLE 500 MG/100 ML 500 MG/100 ML BAG IVPB SCH ×2 (00:53→10:34)
[2022-01-24] MEDS: Acetaminophen IV 1,000 MG/100 ML BAG IVPB SCH ×4 (00:53→17:42)
[2022-01-24] MEDS: methocarbamoL 500 MG TABLET PO SCH ×2 (00:54→10:34)
[2022-01-24] MEDS: Ketorolac 30 MG/ML VIAL IVP SCH ×4 (00:54→17:49)
[2022-01-24] MEDS: Cefepime HCl 2,000 MG in 0.9 % Sodium Chloride 10 ML IVP SCH ×2 (01:07→10:35)
[2022-01-24 03:29] LABS: Hematocrit 30.2 % (37.5-50.1); Hemoglobin 9.3 g/dL (12.9-16.9); Mean Corpuscular HGB Conc 30.8 g/dL (31.6-35.5); Mean Corpuscular Hemoglobin 31.3 pg (28.0-33.3); Mean Corpuscular Volume 101.7 fL (83.0-100.0); Mean Platelet Volume 9.2 fL (9.4-12.4); Platelet Count 275 K/mcL (140-400); Red Blood Count 2.97 M/mcL (4.19-5.50); Red Cell Distribution Width 17.6 % (11.5-14.5); White Blood Count 24.6 K/mcL (4.3-11.1)
[2022-01-24 03:40] LABS: BUN/Creatinine Ratio 35 (6-26); Blood Urea Nitrogen 28 mg/dL (8-23); Calcium 8.8 mg/dL (8.6-10.3); Carbon Dioxide 23 mEq/L (23-29); Chloride 101 mEq/L (98-107); Glucose 124 mg/dL (70-105); Osmolality,Calculated 279 (280-300); Potassium 4.5 mEq/L (3.5-5.1); Sodium 131 mEq/L (136-145); eGFR For African Americans > 60 (> 60); eGFR For Non-African Americans > 60 (> 60)
[2022-01-24] MEDS: *HR* Heparin 5,000 UNIT/ML VIAL SQ SCH ×2 (05:18→17:49)
[2022-01-24] MEDS: Insulin LISPRO 300 UNITS/3 ML VIAL SUBQ SCH ×5 (05:23→20:01)
[2022-01-24] MEDS: Vancomycin 1,500 MG/265 ML IV.SOLN IVPB SCH ×2 (05:26→16:57)
[2022-01-24] MEDS ORDERED: *HR* HYDROmorphone (PF) 1 MG/ML SYRINGE IVP PRN (08:52)
[2022-01-24] MEDS ORDERED: *HR* Succinylcholine 200 MG/10 ML VIAL IVP ONE (09:07)
[2022-01-24] MEDS ORDERED: Ondansetron 4 MG/2 ML VIAL ONE (09:07)
[2022-01-24] MEDS ORDERED: Lidocaine -MPF 4% 5 ML AMPUL ONE (09:07)
[2022-01-24] MEDS ORDERED: Lidocaine -MPF 2% 2 ML VIAL ONE (09:07)
[2022-01-24] MEDS ORDERED: *HR* Rocuronium Bromide 50 MG/5 ML VIAL ONE (09:07)
[2022-01-24] MEDS ORDERED: *HR* FentaNYL (PF) 100 MCG/2 ML VIAL ONE ×2 (09:08→10:04)
[2022-01-24] MEDS ORDERED: *HR* Propofol 200 MG/20 ML VIAL IVP ONE (09:08)
[2022-01-24] MEDS ORDERED: *HR* HYDROmorphone PF 0.5 MG/0.5 ML SYRINGE IVP PRN (09:49)
[2022-01-24] MEDS ORDERED: *HR* HYDROMORPHONE 2 MG/ML VIAL ONE (10:04)
[2022-01-24] MEDS: *HR* OxyCODONE ER (12 HR) 10 MG TABLET PO SCH (10:35)
[2022-01-24] MEDS: Gabapentin 400 MG CAPSULE PO SCH (10:35)
[2022-01-24] MEDS: Fluconazole 400 MG/200 ML 400 MG/200 ML BAG IVPB SCH (10:35)
[2022-01-24] MEDS: diazePAM 5 MG TABLET PO SCH ×2 (10:36→20:01)
[2022-01-24] MEDS: Metoprolol XL (24 HR) Succ 25 MG TAB.ER.24H PO SCH ×2 (10:36→12:11)
[2022-01-24] MEDS ORDERED: *HR* Metoprolol 5 MG/5 ML VIAL IVP ONE (10:46)
[2022-01-24 10:51] LABS: Magnesium 1.8 mg/dL (1.6-2.6); Phosphorous 4.3 mg/dL (2.7-4.5)
[2022-01-24] MEDS ORDERED: Sugammadex Sodium 200 MG/2 ML VIAL IV ONE (11:05)
[2022-01-24] MEDS ORDERED: *HR* OxyCODONE ER (12 HR) 10 MG TABLET PO SCH (12:30)
[2022-01-24] MEDS ORDERED: methocarbamoL 500 MG TABLET PO SCH (12:30)
[2022-01-24] MEDS ORDERED: Fluconazole 400 MG/200 ML 400 MG/200 ML BAG IVPB SCH (12:30)
[2022-01-24] MEDS ORDERED: Cefepime HCl 2,000 MG in 0.9 % Sodium Chloride 10 ML IVP SCH (13:00)
[2022-01-24] MEDS ORDERED: MetroNIDAZOLE 500 MG/100 ML 500 MG/100 ML BAG IVPB SCH (13:00)
[2022-01-24] MEDS ORDERED: Gabapentin 400 MG CAPSULE PO SCH (13:00)
[2022-01-24] MEDS ORDERED: Ipratropium/Albuterol Neb 3 ML IH PRN (15:15)
[2022-01-24] MEDS ORDERED: Saline Nasal Spray 44 ML BOTTLE NS PRN (15:15)
[2022-01-24] MEDS ORDERED: Dextrose Gel 15 GM/37.5 ML TUBE PO PRN ×2 (15:15)
[2022-01-24] MEDS ORDERED: *HR* Metoprolol 5 MG/5 ML VIAL IVP PRN (15:15)
[2022-01-24] MEDS ORDERED: *HR* Dextrose 50 % in Water (Syg) 50 ML SYRINGE IVP PRN (15:15)
[2022-01-24] MEDS ORDERED: D5% in Water 1,000 ML IVC PRN (15:15)
[2022-01-24] MEDS ORDERED: Artificial Tears SOLN 15 ML BOTTLE BOTH EYES PRN (15:15)
[2022-01-24] MEDS ORDERED: Naloxone 0.4 MG/ML INJ IVP PRN (15:15)
[2022-01-24] MEDS ORDERED: Clinimix 5%-20% SOLUTION 2,000 ML with Amino Acids 10% 200 ML, MVI, adult with vitami... IVC SCH (17:00)
[2022-01-24] MEDS ORDERED: Clinimix 5%-20% SOLUTION 2,000 ML, Amino Acids 10% 200 ML with MVI, adult with vitami... IVC SCH (17:00)
[2022-01-25] MEDS: Ketorolac 30 MG/ML VIAL IVP SCH ×4 (00:05→18:08)
[2022-01-25] MEDS: Acetaminophen IV 1,000 MG/100 ML BAG IVPB SCH ×4 (00:06→18:08)
[2022-01-25] MEDS: *HR* OxyCODONE Immed Rel 5 MG TABLET PO PRN ×3 (01:28→14:35)
[2022-01-25] MEDS: Insulin LISPRO 300 UNITS/3 ML VIAL SUBQ SCH ×6 (04:18→23:00)
[2022-01-25] MEDS: Vancomycin 1,500 MG/265 ML IV.SOLN IVPB SCH (05:23)
[2022-01-25] MEDS: *HR* Heparin 5,000 UNIT/ML VIAL SQ SCH ×2 (05:23→18:08)
[2022-01-25] MEDS: Ondansetron 4 MG/2 ML VIAL IVP PRN ×2 (08:27→14:35)
[2022-01-25] MEDS: Metoprolol XL (24 HR) Succ 25 MG TAB.ER.24H PO SCH (08:32)
[2022-01-25] MEDS: diazePAM 5 MG TABLET PO SCH ×2 (08:32→20:01)
[2022-01-25] MEDS: Baclofen 10 MG TABLET PO SCH ×3 (08:32→20:01)
[2022-01-25] MEDS: Pregabalin 75 MG CAPSULE PO SCH ×3 (08:32→20:01)
[2022-01-25] MEDS: Simethicone 80 MG TAB.CHEW PO SCH ×3 (08:32→20:01)
[2022-01-25 08:54] LABS: BUN/Creatinine Ratio 39 (6-26); Blood Urea Nitrogen 28 mg/dL (8-23); Calcium 8.6 mg/dL (8.6-10.3); Carbon Dioxide 20 mEq/L (23-29); Chloride 103 mEq/L (98-107); Glucose 144 mg/dL (70-105); Osmolality,Calculated 278 (280-300); Potassium 4.7 mEq/L (3.5-5.1); Sodium 130 mEq/L (136-145); eGFR For African Americans > 60 (> 60); eGFR For Non-African Americans > 60 (> 60)
[2022-01-25 09:26] LABS: Hemoglobin 9.3 g/dL (12.9-16.9); Mean Platelet Volume 9.1 fL (9.4-12.4)
[2022-01-25 09:27] LABS: Mean Corpuscular Hemoglobin 32.1 pg (28.0-33.3); Mean Corpuscular Volume 103.4 fL (83.0-100.0); Platelet Count 284 K/mcL (140-400); White Blood Count 26.3 K/mcL (4.3-11.1)
[2022-01-25] MEDS: Metoclopramide 10 MG/2 ML VIAL IVP SCH ×2 (12:24→18:08)
[2022-01-25] MEDS: MetroNIDAZOLE 500 MG/100 ML 500 MG/100 ML BAG IVPB SCH ×2 (14:22→20:04)
[2022-01-25] MEDS: Fluconazole 400 MG/200 ML 400 MG/200 ML BAG IVPB SCH (14:22)
[2022-01-25] MEDS: Cefepime HCl 2,000 MG in 0.9 % Sodium Chloride 10 ML IVP SCH ×2 (15:23→19:56)
[2022-01-25] MEDS: D10% in Water 500 ML IVC PRN (18:14)
[2022-01-26] MEDS: Acetaminophen IV 1,000 MG/100 ML BAG IVPB SCH ×4 (00:23→18:05)
[2022-01-26] MEDS: Ketorolac 30 MG/ML VIAL IVP SCH ×5 (00:25→23:48)
[2022-01-26] MEDS: Metoclopramide 10 MG/2 ML VIAL IVP SCH ×5 (00:26→23:49)
[2022-01-26] MEDS: Insulin LISPRO 300 UNITS/3 ML VIAL SUBQ SCH ×7 (02:27→23:48)
[2022-01-26 02:37] LABS: Hematocrit 28.9 % (37.5-50.1); Hemoglobin 8.8 g/dL (12.9-16.9); Mean Corpuscular HGB Conc 30.4 g/dL (31.6-35.5); Mean Corpuscular Hemoglobin 31.1 pg (28.0-33.3); Mean Corpuscular Volume 102.1 fL (83.0-100.0); Platelet Count 258 K/mcL (140-400); Red Blood Count 2.83 M/mcL (4.19-5.50); Red Cell Distribution Width 17.2 % (11.5-14.5); White Blood Count 20.1 K/mcL (4.3-11.1)
[2022-01-26 02:55] LABS: BUN/Creatinine Ratio 32 (6-26); Blood Urea Nitrogen 26 mg/dL (8-23); Calcium 8.8 mg/dL (8.6-10.3); Carbon Dioxide 20 mEq/L (23-29); Chloride 102 mEq/L (98-107); Glucose 96 mg/dL (70-105); Osmolality,Calculated 273 (280-300); Potassium 4.5 mEq/L (3.5-5.1); Sodium 129 mEq/L (136-145); eGFR For African Americans > 60 (> 60); eGFR For Non-African Americans > 60 (> 60)
[2022-01-26 02:56] LABS: Alanine Aminotransferase 19 Units/L (7-52); Albumin 2.5 g/dL (3.5-5.7); Albumin/Globulin Ratio 0.9 (1.1-2.2); Alkaline Phosphatase 145 Units/L (34-104); Aspartate Amino Transferase 12 Units/L (13-39); BUN/Creatinine Ratio 32 (6-26); Bilirubin,Total 0.9 mg/dL (0.3-1.0); Blood Urea Nitrogen 26 mg/dL (8-23); Calcium 8.8 mg/dL (8.6-10.3); Carbon Dioxide 20 mEq/L (23-29); Chloride 102 mEq/L (98-107); Globulin 2.8 g/dL (2.4-3.5); Glucose 92 mg/dL (70-105); Magnesium 1.6 mg/dL (1.6-2.6); Osmolality,Calculated 274 (280-300); Phosphorous 3.7 mg/dL (2.7-4.5); Potassium 4.6 mEq/L (3.5-5.1); Sodium 130 mEq/L (136-145); Total Protein 5.3 g/dL (6.4-8.9); eGFR For African Americans > 60 (> 60); eGFR For Non-African Americans > 60 (> 60)
[2022-01-26] MEDS: D10% in Water 500 ML IVC PRN (04:49)
[2022-01-26] MEDS: *HR* Heparin 5,000 UNIT/ML VIAL SQ SCH ×2 (05:26→18:05)
[2022-01-26] MEDS: Cefepime HCl 2,000 MG in 0.9 % Sodium Chloride 10 ML IVP SCH ×3 (05:28→20:07)
[2022-01-26] MEDS: MetroNIDAZOLE 500 MG/100 ML 500 MG/100 ML BAG IVPB SCH ×3 (05:33→20:09)
[2022-01-26] MEDS: Baclofen 10 MG TABLET PO SCH ×3 (08:27→20:07)
[2022-01-26] MEDS: Metoprolol XL (24 HR) Succ 25 MG TAB.ER.24H PO SCH (08:27)
[2022-01-26] MEDS: Simethicone 80 MG TAB.CHEW PO SCH ×3 (08:27→20:07)
[2022-01-26] MEDS: Pregabalin 75 MG CAPSULE PO SCH ×3 (08:27→20:07)
[2022-01-26] MEDS: diazePAM 5 MG TABLET PO SCH ×2 (08:27→20:07)
[2022-01-26] MEDS: Fluconazole 400 MG/200 ML 400 MG/200 ML BAG IVPB SCH (14:06)
[2022-01-26] MEDS: *HR* OxyCODONE Immed Rel 5 MG TABLET PO PRN ×2 (14:44→20:07)
[2022-01-27] MEDS: Acetaminophen IV 1,000 MG/100 ML BAG IVPB SCH ×4 (00:10→23:58)
[2022-01-27] MEDS: *HR* OxyCODONE Immed Rel 5 MG TABLET PO PRN ×3 (02:09→21:25)
[2022-01-27] MEDS: Insulin LISPRO 300 UNITS/3 ML VIAL SUBQ SCH ×6 (02:14→21:30)
[2022-01-27 03:55] LABS: Hematocrit 30.2 % (37.5-50.1); Hemoglobin 9.2 g/dL (12.9-16.9); Mean Corpuscular HGB Conc 30.5 g/dL (31.6-35.5); Mean Corpuscular Hemoglobin 31.8 pg (28.0-33.3); Mean Corpuscular Volume 104.5 fL (83.0-100.0); Mean Platelet Volume 9.3 fL (9.4-12.4); Platelet Count 268 K/mcL (140-400); Red Blood Count 2.89 M/mcL (4.19-5.50); Red Cell Distribution Width 17.1 % (11.5-14.5); White Blood Count 19.9 K/mcL (4.3-11.1)
[2022-01-27 04:11] LABS: BUN/Creatinine Ratio 25 (6-26); Blood Urea Nitrogen 26 mg/dL (8-23); Calcium 9.2 mg/dL (8.6-10.3); Carbon Dioxide 19 mEq/L (23-29); Chloride 103 mEq/L (98-107); Glucose 80 mg/dL (70-105); Osmolality,Calculated 276 (280-300); Potassium 4.9 mEq/L (3.5-5.1); Sodium 131 mEq/L (136-145); eGFR For African Americans > 60 (> 60); eGFR For Non-African Americans > 60 (> 60)
[2022-01-27] MEDS: MetroNIDAZOLE 500 MG/100 ML 500 MG/100 ML BAG IVPB SCH ×3 (05:23→21:29)
[2022-01-27] MEDS: Ketorolac 30 MG/ML VIAL IVP SCH ×4 (05:28→23:56)
[2022-01-27] MEDS: Cefepime HCl 2,000 MG in 0.9 % Sodium Chloride 10 ML IVP SCH ×3 (05:29→21:26)
[2022-01-27] MEDS: *HR* Heparin 5,000 UNIT/ML VIAL SQ SCH ×2 (05:29→15:58)
[2022-01-27] MEDS: Metoclopramide 10 MG/2 ML VIAL IVP SCH ×3 (06:00→16:36)
[2022-01-27] MEDS: Baclofen 10 MG TABLET PO SCH ×3 (08:37→21:25)
[2022-01-27] MEDS: diazePAM 5 MG TABLET PO SCH ×2 (08:37→21:26)
[2022-01-27] MEDS: Metoprolol XL (24 HR) Succ 25 MG TAB.ER.24H PO SCH (08:37)
[2022-01-27] MEDS: Pregabalin 75 MG CAPSULE PO SCH ×3 (08:37→21:26)
[2022-01-27] MEDS: Simethicone 80 MG TAB.CHEW PO SCH (08:37)
[2022-01-27] MEDS: Fluconazole 400 MG/200 ML 400 MG/200 ML BAG IVPB SCH (13:41)
[2022-01-28] MEDS: Metoclopramide 10 MG/2 ML VIAL IVP SCH ×4 (00:05→17:50)
[2022-01-28 01:45] LABS: Hematocrit 27.4 % (37.5-50.1); Hemoglobin 8.7 g/dL (12.9-16.9); Mean Corpuscular HGB Conc 31.8 g/dL (31.6-35.5); Mean Corpuscular Hemoglobin 32.5 pg (28.0-33.3); Mean Corpuscular Volume 102.2 fL (83.0-100.0); Mean Platelet Volume 9.1 fL (9.4-12.4); Platelet Count 242 K/mcL (140-400); Red Blood Count 2.68 M/mcL (4.19-5.50); Red Cell Distribution Width 16.9 % (11.5-14.5); White Blood Count 17.5 K/mcL (4.3-11.1)
[2022-01-28 02:02] LABS: BUN/Creatinine Ratio 26 (6-26); Blood Urea Nitrogen 26 mg/dL (8-23); Calcium 8.7 mg/dL (8.6-10.3); Carbon Dioxide 18 mEq/L (23-29); Chloride 102 mEq/L (98-107); Glucose 98 mg/dL (70-105); Magnesium 1.7 mg/dL (1.6-2.6); Osmolality,Calculated 271 (280-300); Potassium 4.5 mEq/L (3.5-5.1); Sodium 128 mEq/L (136-145); eGFR For African Americans > 60 (> 60); eGFR For Non-African Americans > 60 (> 60)
[2022-01-28] MEDS: Insulin LISPRO 300 UNITS/3 ML VIAL SUBQ SCH ×5 (05:39→16:45)
[2022-01-28] MEDS: Cefepime HCl 2,000 MG in 0.9 % Sodium Chloride 10 ML IVP SCH ×3 (05:49→20:15)
[2022-01-28] MEDS: MetroNIDAZOLE 500 MG/100 ML 500 MG/100 ML BAG IVPB SCH ×3 (05:50→20:18)
[2022-01-28] MEDS: *HR* Heparin 5,000 UNIT/ML VIAL SQ SCH ×2 (05:51→17:49)
[2022-01-28] MEDS: Ketorolac 30 MG/ML VIAL IVP SCH ×3 (05:51→17:49)
[2022-01-28] MEDS: *HR* OxyCODONE Immed Rel 5 MG TABLET PO PRN (05:52)
[2022-01-28] MEDS: Acetaminophen IV 1,000 MG/100 ML BAG IVPB SCH ×2 (08:08→16:45)
[2022-01-28] MEDS: Baclofen 10 MG TABLET PO SCH ×3 (08:09→20:18)
[2022-01-28] MEDS: diazePAM 5 MG TABLET PO SCH ×2 (08:10→20:19)
[2022-01-28] MEDS: Pregabalin 75 MG CAPSULE PO SCH ×3 (08:10→20:19)
[2022-01-28] MEDS: Metoprolol XL (24 HR) Succ 25 MG TAB.ER.24H PO SCH (08:10)
[2022-01-28] MEDS: Fluconazole 400 MG/200 ML 400 MG/200 ML BAG IVPB SCH (13:11)
[2022-01-29] MEDS: Insulin LISPRO 300 UNITS/3 ML VIAL SUBQ SCH ×5 (00:29→17:10)
[2022-01-29] MEDS: Metoclopramide 10 MG/2 ML VIAL IVP SCH ×4 (00:36→17:08)
[2022-01-29] MEDS: Acetaminophen IV 1,000 MG/100 ML BAG IVPB SCH ×3 (01:10→15:35)
[2022-01-29] MEDS: MetroNIDAZOLE 500 MG/100 ML 500 MG/100 ML BAG IVPB SCH ×3 (05:54→20:25)
[2022-01-29] MEDS: *HR* Heparin 5,000 UNIT/ML VIAL SQ SCH ×2 (05:54→17:06)
[2022-01-29] MEDS: Cefepime HCl 2,000 MG in 0.9 % Sodium Chloride 10 ML IVP SCH ×3 (05:56→20:26)
[2022-01-29] MEDS: diazePAM 5 MG TABLET PO SCH ×2 (08:11→20:25)
[2022-01-29] MEDS: Baclofen 10 MG TABLET PO SCH ×3 (08:11→20:25)
[2022-01-29] MEDS: Metoprolol XL (24 HR) Succ 25 MG TAB.ER.24H PO SCH (08:11)
[2022-01-29] MEDS: Pregabalin 75 MG CAPSULE PO SCH ×3 (08:11→20:25)
[2022-01-29 10:46] LABS: Basophils # 0.1 K/mcL (0.0-0.2); Basophils % 0.6 %; Eosinophils # 0.2 K/mcL (0.0-0.6); Eosinophils % 1.2 %; Hematocrit 28.9 % (37.5-50.1); Hemoglobin 8.8 g/dL (12.9-16.9); Lymphocytes # 0.7 K/mcL (0.6-4.6); Lymphocytes % 4.9 %; Mean Corpuscular HGB Conc 30.4 g/dL (31.6-35.5); Mean Corpuscular Hemoglobin 31.7 pg (28.0-33.3); Mean Platelet Volume 9.3 fL (9.4-12.4); Monocytes # 0.7 K/mcL (0.0-1.3); Neutrophils # 11.7 K/mcL (1.6-8.9); Platelet Count 257 K/mcL (140-400); Red Blood Count 2.78 M/mcL (4.19-5.50); Red Cell Distribution Width 16.8 % (11.5-14.5); Segmented Neutrophils % 84.3 %; White Blood Count 13.9 K/mcL (4.3-11.1)
[2022-01-29 11:03] LABS: BUN/Creatinine Ratio 25 (6-26); Blood Urea Nitrogen 31 mg/dL (8-23); Calcium 8.5 mg/dL (8.6-10.3); Carbon Dioxide 18 mEq/L (23-29); Chloride 104 mEq/L (98-107); Glucose 131 mg/dL (70-105); Osmolality,Calculated 276 (280-300); Potassium 4.6 mEq/L (3.5-5.1); Sodium 129 mEq/L (136-145); eGFR For African Americans > 60 (> 60); eGFR For Non-African Americans 58 (> 60)
[2022-01-29] MEDS: Fluconazole 400 MG/200 ML 400 MG/200 ML BAG IVPB SCH (12:44)
[2022-01-30] MEDS: Acetaminophen IV 1,000 MG/100 ML BAG IVPB SCH ×3 (01:29→17:29)
[2022-01-30] MEDS: Metoclopramide 10 MG/2 ML VIAL IVP SCH ×4 (01:29→17:30)
[2022-01-30 03:29] LABS: Hematocrit 29.7 % (37.5-50.1); Hemoglobin 8.9 g/dL (12.9-16.9); Mean Corpuscular Hemoglobin 30.9 pg (28.0-33.3); Mean Corpuscular Volume 103.1 fL (83.0-100.0); Mean Platelet Volume 9.4 fL (9.4-12.4); Platelet Count 275 K/mcL (140-400); Red Blood Count 2.88 M/mcL (4.19-5.50); Red Cell Distribution Width 16.8 % (11.5-14.5); White Blood Count 12.1 K/mcL (4.3-11.1)
[2022-01-30 03:45] LABS: BUN/Creatinine Ratio 24 (6-26); Blood Urea Nitrogen 26 mg/dL (8-23); Calcium 8.6 mg/dL (8.6-10.3); Carbon Dioxide 17 mEq/L (23-29); Chloride 106 mEq/L (98-107); Glucose 85 mg/dL (70-105); Magnesium 1.8 mg/dL (1.6-2.6); Osmolality,Calculated 274 (280-300); Potassium 4.8 mEq/L (3.5-5.1); Sodium 130 mEq/L (136-145); eGFR For African Americans > 60 (> 60); eGFR For Non-African Americans > 60 (> 60)
[2022-01-30 04:28] LABS: Lymphocytes # 1.7 K/mcL (0.6-4.6); Monocytes # 0.2 K/mcL (0.0-1.3); Neutrophils # 10.2 K/mcL (1.6-8.9); Platelet Estimate Normal (Normal)
[2022-01-30] MEDS: Insulin LISPRO 300 UNITS/3 ML VIAL SUBQ SCH ×4 (06:00→17:28)
[2022-01-30] MEDS: Cefepime HCl 2,000 MG in 0.9 % Sodium Chloride 10 ML IVP SCH ×3 (06:01→21:49)
[2022-01-30] MEDS: MetroNIDAZOLE 500 MG/100 ML 500 MG/100 ML BAG IVPB SCH ×3 (06:03→21:50)
[2022-01-30] MEDS: *HR* Heparin 5,000 UNIT/ML VIAL SQ SCH ×2 (06:04→17:30)
[2022-01-30] MEDS: Metoprolol XL (24 HR) Succ 25 MG TAB.ER.24H PO SCH (10:59)
[2022-01-30] MEDS: Pregabalin 75 MG CAPSULE PO SCH ×3 (11:04→21:49)
[2022-01-30] MEDS: diazePAM 5 MG TABLET PO SCH ×2 (11:04→21:51)
[2022-01-30] MEDS: Baclofen 10 MG TABLET PO SCH ×3 (11:04→21:49)
[2022-01-30] MEDS: Fluconazole 400 MG/200 ML 400 MG/200 ML BAG IVPB SCH (12:47)
[2022-01-31] MEDS: Acetaminophen IV 1,000 MG/100 ML BAG IVPB SCH ×4 (00:26→23:48)
[2022-01-31] MEDS: *HR* OxyCODONE Immed Rel 5 MG TABLET PO PRN (00:26)
[2022-01-31] MEDS: Metoclopramide 10 MG/2 ML VIAL IVP SCH ×5 (00:26→23:49)
[2022-01-31] MEDS ORDERED: *HR* LORazepam 2 MG/ML VIAL IVP ONE (00:34)
[2022-01-31 02:58] LABS: Hematocrit 28.6 % (37.5-50.1); Hemoglobin 8.5 g/dL (12.9-16.9); Mean Corpuscular HGB Conc 29.7 g/dL (31.6-35.5); Mean Corpuscular Hemoglobin 30.9 pg (28.0-33.3); Mean Platelet Volume 9.2 fL (9.4-12.4); Platelet Count 283 K/mcL (140-400); Red Blood Count 2.75 M/mcL (4.19-5.50); Red Cell Distribution Width 16.8 % (11.5-14.5); White Blood Count 11.7 K/mcL (4.3-11.1)
[2022-01-31 03:05] LABS: BUN/Creatinine Ratio 20 (6-26); Blood Urea Nitrogen 24 mg/dL (8-23); Calcium 8.6 mg/dL (8.6-10.3); Carbon Dioxide 17 mEq/L (23-29); Chloride 108 mEq/L (98-107); Glucose 86 mg/dL (70-105); Osmolality,Calculated 277 (280-300); Potassium 4.6 mEq/L (3.5-5.1); Sodium 132 mEq/L (136-145); eGFR For African Americans > 60 (> 60); eGFR For Non-African Americans > 60 (> 60)
[2022-01-31] MEDS: Cefepime HCl 2,000 MG in 0.9 % Sodium Chloride 10 ML IVP SCH ×3 (06:04→23:47)
[2022-01-31] MEDS: *HR* Heparin 5,000 UNIT/ML VIAL SQ SCH ×2 (06:04→18:05)
[2022-01-31] MEDS: MetroNIDAZOLE 500 MG/100 ML 500 MG/100 ML BAG IVPB SCH ×3 (06:05→23:49)
[2022-01-31] MEDS: Insulin LISPRO 300 UNITS/3 ML VIAL SUBQ SCH ×5 (08:58→11:54)
[2022-01-31] MEDS: Pregabalin 75 MG CAPSULE PO SCH ×3 (09:07→23:49)
[2022-01-31] MEDS: Baclofen 10 MG TABLET PO SCH ×3 (09:07→23:49)
[2022-01-31] MEDS: diazePAM 5 MG TABLET PO SCH (09:07)
[2022-01-31] MEDS: Metoprolol XL (24 HR) Succ 25 MG TAB.ER.24H PO SCH (09:07)
[2022-01-31] MEDS: Fluconazole 400 MG/200 ML 400 MG/200 ML BAG IVPB SCH (12:17)
[2022-02-01] MEDS: diazePAM 5 MG TABLET PO SCH ×3 (04:42→23:53)
[2022-02-01 05:33] LABS: Basophils # 0.3 K/mcL (0.0-0.2); Basophils % 1.9 %; Eosinophils # 0.3 K/mcL (0.0-0.6); Eosinophils % 1.9 %; Hematocrit 32.3 % (37.5-50.1); Hemoglobin 9.8 g/dL (12.9-16.9); Immature Granulocytes % 8.5 % (0-4); Lymphocytes # 1.1 K/mcL (0.6-4.6); Lymphocytes % 8.3 %; Mean Corpuscular HGB Conc 30.3 g/dL (31.6-35.5); Mean Corpuscular Hemoglobin 31.2 pg (28.0-33.3); Mean Corpuscular Volume 102.9 fL (83.0-100.0); Mean Platelet Volume 9.1 fL (9.4-12.4); Monocytes # 0.9 K/mcL (0.0-1.3); Monocytes % 6.8 %; Neutrophils # 9.7 K/mcL (1.6-8.9); Platelet Count 293 K/mcL (140-400); Red Blood Count 3.14 M/mcL (4.19-5.50); Segmented Neutrophils % 72.6 %; White Blood Count 13.3 K/mcL (4.3-11.1)
[2022-02-01 05:52] LABS: BUN/Creatinine Ratio 17 (6-26); Blood Urea Nitrogen 21 mg/dL (8-23); Calcium 9.2 mg/dL (8.6-10.3); Carbon Dioxide 17 mEq/L (23-29); Chloride 109 mEq/L (98-107); Glucose 103 mg/dL (70-105); Osmolality,Calculated 281 (280-300); Potassium 4.6 mEq/L (3.5-5.1); Sodium 134 mEq/L (136-145); eGFR For African Americans > 60 (> 60); eGFR For Non-African Americans 57 (> 60)
[2022-02-01 06:23] LABS: Anisocytosis 1+ (Not Present); Large Platelets Present (Not Present); Platelet Estimate Normal (Normal)
[2022-02-01] MEDS: Metoclopramide 10 MG/2 ML VIAL IVP SCH ×3 (06:55→18:13)
[2022-02-01] MEDS: MetroNIDAZOLE 500 MG/100 ML 500 MG/100 ML BAG IVPB SCH ×3 (06:55→20:37)
[2022-02-01] MEDS: Cefepime HCl 2,000 MG in 0.9 % Sodium Chloride 10 ML IVP SCH ×3 (06:55→20:36)
[2022-02-01] MEDS: *HR* Heparin 5,000 UNIT/ML VIAL SQ SCH ×2 (06:56→18:13)
[2022-02-01] MEDS: Metoprolol XL (24 HR) Succ 25 MG TAB.ER.24H PO SCH (09:47)
[2022-02-01] MEDS: Baclofen 10 MG TABLET PO SCH ×3 (09:47→20:37)
[2022-02-01] MEDS: Acetaminophen IV 1,000 MG/100 ML BAG IVPB SCH ×2 (09:47→16:18)
[2022-02-01] MEDS: Pregabalin 75 MG CAPSULE PO SCH ×3 (09:48→20:38)
[2022-02-01] MEDS: *HR* OxyCODONE Immed Rel 5 MG TABLET PO PRN (10:03)
[2022-02-01] MEDS: Fluconazole 400 MG/200 ML 400 MG/200 ML BAG IVPB SCH (12:12)
[2022-02-01] MEDS ORDERED: diazePAM 5 MG TABLET PO PRN (15:21)
[2022-02-01 18:41] LABS: Albumin 2.9 g/dL (3.5-5.7); Bilirubin,Direct 0.2 mg/dL (0.0-0.2); Bilirubin,Indirect 0.5 mg/dL (0.0-1.0); Bilirubin,Total 0.7 mg/dL (0.3-1.0); Globulin 2.8 g/dL (2.4-3.5); Total Protein 5.7 g/dL (6.4-8.9)
[2022-02-02] MEDS: Metoclopramide 10 MG/2 ML VIAL IVP SCH ×3 (00:16→10:40)
[2022-02-02] MEDS: Acetaminophen IV 1,000 MG/100 ML BAG IVPB SCH ×2 (00:17→08:24)
[2022-02-02] MEDS: Cefepime HCl 2,000 MG in 0.9 % Sodium Chloride 10 ML IVP SCH ×3 (05:18→21:34)
[2022-02-02] MEDS: MetroNIDAZOLE 500 MG/100 ML 500 MG/100 ML BAG IVPB SCH ×3 (05:19→21:34)
[2022-02-02 06:57] LABS: Eosinophils # 0.3 K/mcL (0.0-0.6); Hematocrit 33.1 % (37.5-50.1); Hemoglobin 9.9 g/dL (12.9-16.9); Mean Corpuscular HGB Conc 29.9 g/dL (31.6-35.5); Mean Corpuscular Hemoglobin 30.9 pg (28.0-33.3); Mean Corpuscular Volume 103.4 fL (83.0-100.0); Mean Platelet Volume 9.1 fL (9.4-12.4); Platelet Count 275 K/mcL (140-400); Red Cell Distribution Width 16.7 % (11.5-14.5); White Blood Count 13.7 K/mcL (4.3-11.1)
[2022-02-02 07:13] LABS: BUN/Creatinine Ratio 17 (6-26); Blood Urea Nitrogen 19 mg/dL (8-23); Calcium 9.1 mg/dL (8.6-10.3); Carbon Dioxide 16 mEq/L (23-29); Chloride 106 mEq/L (98-107); Glucose 89 mg/dL (70-105); Osmolality,Calculated 276 (280-300); Potassium 4.6 mEq/L (3.5-5.1); Sodium 132 mEq/L (136-145); eGFR For African Americans > 60 (> 60); eGFR For Non-African Americans > 60 (> 60)
[2022-02-02] MEDS: *HR* Heparin 5,000 UNIT/ML VIAL SQ SCH ×2 (08:02→18:27)
[2022-02-02] MEDS: diazePAM 5 MG TABLET PO SCH (08:08)
[2022-02-02 08:17] LABS: Lymphocytes # 1.1 K/mcL (0.6-4.6); Monocytes # 0.8 K/mcL (0.0-1.3); Platelet Estimate Normal (Normal)
[2022-02-02] MEDS: Pregabalin 75 MG CAPSULE PO SCH ×3 (08:23→21:35)
[2022-02-02] MEDS: Metoprolol XL (24 HR) Succ 25 MG TAB.ER.24H PO SCH (08:24)
[2022-02-02] MEDS: Baclofen 10 MG TABLET PO SCH ×3 (08:24→21:35)
[2022-02-02] MEDS: *HR* OxyCODONE Immed Rel 5 MG TABLET PO PRN (10:40)
[2022-02-02] MEDS: Fluconazole 400 MG/200 ML 400 MG/200 ML BAG IVPB SCH (14:07)
[2022-02-02] MEDS: QUEtiapine Fumarate 25 MG TABLET PO SCH (21:35)
[2022-02-03 01:36] LABS: Basophils # 0.2 K/mcL (0.0-0.2); Basophils % 1.3 %; Eosinophils # 0.3 K/mcL (0.0-0.6); Eosinophils % 2.1 %; Hematocrit 30.2 % (37.5-50.1); Immature Granulocytes % 8.8 % (0-4); Lymphocytes % 7.9 %; Mean Corpuscular HGB Conc 29.8 g/dL (31.6-35.5); Mean Corpuscular Hemoglobin 30.4 pg (28.0-33.3); Mean Platelet Volume 9.3 fL (9.4-12.4); Monocytes % 7.6 %; Neutrophils # 9.1 K/mcL (1.6-8.9); Platelet Count 251 K/mcL (140-400); Red Blood Count 2.96 M/mcL (4.19-5.50); Red Cell Distribution Width 16.9 % (11.5-14.5); Segmented Neutrophils % 72.3 %; White Blood Count 12.6 K/mcL (4.3-11.1)
[2022-02-03 01:54] LABS: BUN/Creatinine Ratio 15 (6-26); Blood Urea Nitrogen 20 mg/dL (8-23); Carbon Dioxide 16 mEq/L (23-29); Chloride 108 mEq/L (98-107); Glucose 85 mg/dL (70-105); Osmolality,Calculated 278 (280-300); Potassium 4.7 mEq/L (3.5-5.1); Sodium 133 mEq/L (136-145); eGFR For African Americans > 60 (> 60); eGFR For Non-African Americans 55 (> 60)
[2022-02-03 02:31] LABS: Platelet Estimate Normal (Normal)
[2022-02-03] MEDS: MetroNIDAZOLE 500 MG/100 ML 500 MG/100 ML BAG IVPB SCH ×3 (05:17→20:40)
[2022-02-03] MEDS: *HR* Heparin 5,000 UNIT/ML VIAL SQ SCH ×2 (05:18→18:14)
[2022-02-03] MEDS: Cefepime HCl 2,000 MG in 0.9 % Sodium Chloride 10 ML IVP SCH ×3 (05:18→20:40)
[2022-02-03] MEDS ORDERED: Pantoprazole 40 MG VIAL IVP SCH (06:00)
[2022-02-03] MEDS: Baclofen 10 MG TABLET PO SCH ×3 (10:27→20:40)
[2022-02-03] MEDS: Pregabalin 75 MG CAPSULE PO SCH ×3 (10:27→20:40)
[2022-02-03] MEDS: Metoprolol XL (24 HR) Succ 25 MG TAB.ER.24H PO SCH (10:27)
[2022-02-03] MEDS: Fluconazole 400 MG/200 ML 400 MG/200 ML BAG IVPB SCH (13:53)
[2022-02-03] MEDS: QUEtiapine Fumarate 25 MG TABLET PO SCH (20:40)
[2022-02-04] MEDS: *HR* Heparin 5,000 UNIT/ML VIAL SQ SCH ×2 (04:44→18:21)
[2022-02-04] MEDS: Cefepime HCl 2,000 MG in 0.9 % Sodium Chloride 10 ML IVP SCH ×3 (04:44→20:05)
[2022-02-04] MEDS: MetroNIDAZOLE 500 MG/100 ML 500 MG/100 ML BAG IVPB SCH ×3 (04:44→20:05)
[2022-02-04 05:54] LABS: Hematocrit 31.5 % (37.5-50.1); Hemoglobin 9.4 g/dL (12.9-16.9); Mean Corpuscular HGB Conc 29.8 g/dL (31.6-35.5); Mean Corpuscular Hemoglobin 30.8 pg (28.0-33.3); Mean Corpuscular Volume 103.3 fL (83.0-100.0); Mean Platelet Volume 9.4 fL (9.4-12.4); Monocytes # 0.8 K/mcL (0.0-1.3); Platelet Count 243 K/mcL (140-400); Red Blood Count 3.05 M/mcL (4.19-5.50); Red Cell Distribution Width 17.1 % (11.5-14.5); White Blood Count 10.3 K/mcL (4.3-11.1)
[2022-02-04 06:15] LABS: BUN/Creatinine Ratio 15 (6-26); Blood Urea Nitrogen 20 mg/dL (8-23); Carbon Dioxide 19 mEq/L (23-29); Chloride 109 mEq/L (98-107); Glucose 98 mg/dL (70-105); Osmolality,Calculated 285 (280-300); Potassium 4.2 mEq/L (3.5-5.1); Sodium 136 mEq/L (136-145); eGFR For African Americans > 60 (> 60); eGFR For Non-African Americans 53 (> 60)
[2022-02-04 06:41] LABS: Anisocytosis 1+ (Not Present); Eosinophils # 0.4 K/mcL (0.0-0.6); Lymphocytes # 1.7 K/mcL (0.6-4.6); Macrocytosis Present (Not Present); Neutrophils # 7.2 K/mcL (1.6-8.9); Platelet Estimate Normal (Normal)
[2022-02-04] MEDS: Metoprolol XL (24 HR) Succ 25 MG TAB.ER.24H PO SCH (08:10)
[2022-02-04] MEDS: Baclofen 10 MG TABLET PO SCH ×3 (08:10→20:06)
[2022-02-04] MEDS: Pregabalin 75 MG CAPSULE PO SCH ×3 (08:10→20:06)
[2022-02-04] MEDS ORDERED: 0.9 % Sodium Chloride 1,000 ML IVC SCH (09:00)
[2022-02-04] MEDS: Acetaminophen 325 MG TABLET PO PRN (09:57)
[2022-02-04] MEDS: Fluconazole 400 MG/200 ML 400 MG/200 ML BAG IVPB SCH (12:37)
[2022-02-04] MEDS ORDERED: *HR* Acetaminophen w/Cod 300-30 mg 1 TAB TABLET PO PRN (14:23)
[2022-02-04] MEDS: QUEtiapine Fumarate 25 MG TABLET PO SCH (20:05)
[2022-02-05] MEDS: MetroNIDAZOLE 500 MG/100 ML 500 MG/100 ML BAG IVPB SCH ×3 (04:38→21:14)
[2022-02-05] MEDS: Cefepime HCl 2,000 MG in 0.9 % Sodium Chloride 10 ML IVP SCH ×3 (04:38→21:14)
[2022-02-05] MEDS: *HR* Heparin 5,000 UNIT/ML VIAL SQ SCH ×2 (04:39→18:13)
[2022-02-05 05:47] LABS: Hematocrit 31.2 % (37.5-50.1); Hemoglobin 9.3 g/dL (12.9-16.9); Mean Corpuscular HGB Conc 29.8 g/dL (31.6-35.5); Mean Corpuscular Hemoglobin 30.4 pg (28.0-33.3); Mean Platelet Volume 9.1 fL (9.4-12.4); Platelet Count 198 K/mcL (140-400); Red Blood Count 3.06 M/mcL (4.19-5.50); Red Cell Distribution Width 17.1 % (11.5-14.5); White Blood Count 8.9 K/mcL (4.3-11.1)
[2022-02-05 05:56] LABS: BUN/Creatinine Ratio 13 (6-26); Blood Urea Nitrogen 19 mg/dL (8-23); Calcium 8.9 mg/dL (8.6-10.3); Carbon Dioxide 17 mEq/L (23-29); Chloride 113 mEq/L (98-107); Glucose 103 mg/dL (70-105); Osmolality,Calculated 287 (280-300); Potassium 4.3 mEq/L (3.5-5.1); Sodium 137 mEq/L (136-145); eGFR For African Americans > 60 (> 60); eGFR For Non-African Americans 50 (> 60)
[2022-02-05 06:50] LABS: Lymphocytes # 1.6 K/mcL (0.6-4.6); Monocytes # 0.4 K/mcL (0.0-1.3); Neutrophils # 6.9 K/mcL (1.6-8.9); Platelet Estimate Normal (Normal)
[2022-02-05] MEDS ORDERED: Ringers Solution, Lactated 1,000 ML IVC SCH (09:00)
[2022-02-05] MEDS: Baclofen 10 MG TABLET PO SCH ×3 (09:41→21:15)
[2022-02-05] MEDS: Pregabalin 75 MG CAPSULE PO SCH ×3 (09:42→21:15)
[2022-02-05] MEDS: Metoprolol XL (24 HR) Succ 25 MG TAB.ER.24H PO SCH (09:42)
[2022-02-05] MEDS: Acetaminophen 325 MG TABLET PO PRN (09:44)
[2022-02-05] MEDS: Fluconazole 400 MG/200 ML 400 MG/200 ML BAG IVPB SCH (13:46)
[2022-02-05] MEDS: QUEtiapine Fumarate 25 MG TABLET PO SCH (21:15)
[2022-02-06] MEDS: MetroNIDAZOLE 500 MG/100 ML 500 MG/100 ML BAG IVPB SCH ×3 (04:43→21:45)
[2022-02-06] MEDS: Cefepime HCl 2,000 MG in 0.9 % Sodium Chloride 10 ML IVP SCH ×2 (04:44→13:41)
[2022-02-06] MEDS: *HR* Heparin 5,000 UNIT/ML VIAL SQ SCH ×2 (04:44→17:32)
[2022-02-06] MEDS: Metoprolol XL (24 HR) Succ 25 MG TAB.ER.24H PO SCH (08:35)
[2022-02-06] MEDS: Pregabalin 75 MG CAPSULE PO SCH (08:35)
[2022-02-06] MEDS: Baclofen 10 MG TABLET PO SCH ×2 (08:35→21:42)
[2022-02-06] MEDS ORDERED: Pregabalin 75 MG CAPSULE PO SCH (15:00)
[2022-02-06] MEDS: Fluconazole 400 MG/200 ML 400 MG/200 ML BAG IVPB SCH (15:10)
[2022-02-06] MEDS: QUEtiapine Fumarate 25 MG TABLET PO SCH (21:43)
[2022-02-06] MEDS: Pregabalin 50 MG CAPSULE PO SCH (21:43)
[2022-02-07] MEDS: Cefepime HCl 2,000 MG in 0.9 % Sodium Chloride 10 ML IVP SCH ×3 (00:33→23:01)
[2022-02-07] MEDS: MetroNIDAZOLE 500 MG/100 ML 500 MG/100 ML BAG IVPB SCH ×2 (04:51→12:34)
[2022-02-07] MEDS: *HR* Heparin 5,000 UNIT/ML VIAL SQ SCH (04:52)
[2022-02-07] MEDS: Baclofen 10 MG TABLET PO SCH ×3 (11:16→20:12)
[2022-02-07] MEDS: Metoprolol XL (24 HR) Succ 25 MG TAB.ER.24H PO SCH (11:17)
[2022-02-07] MEDS: Pregabalin 50 MG CAPSULE PO SCH ×2 (11:19→20:12)
[2022-02-07] MEDS: *HR* OxyCODONE Immed Rel 5 MG TABLET PO PRN (12:26)
[2022-02-07 13:38] LABS: Influenza A PCR Negative (Negative); Influenza B PCR Negative (Negative); Resp. Syncytial Virus PCR Negative (Negative)
[2022-02-07 13:39] LABS: SARS-CoV-2 by PCR (In House) Negative (Negative)
[2022-02-07] MEDS ORDERED: Fluconazole 200 MG/100 ML 200 MG/100 ML BAG IVPB SCH (15:00)
[2022-02-07] MEDS: Fluconazole 100 MG TABLET PO SCH (16:07)
[2022-02-07 17:07] LABS: Basophils # 0.1 K/mcL (0.0-0.2); Basophils % 0.6 %; Eosinophils # 0.1 K/mcL (0.0-0.6); Eosinophils % 0.7 %; Hematocrit 30.7 % (37.5-50.1); Hemoglobin 9.2 g/dL (12.9-16.9); Immature Granulocytes % 4.2 % (0-4); Lymphocytes # 0.9 K/mcL (0.6-4.6); Lymphocytes % 9.3 %; Mean Corpuscular Hemoglobin 30.4 pg (28.0-33.3); Mean Corpuscular Volume 101.3 fL (83.0-100.0); Mean Platelet Volume 10.1 fL (9.4-12.4); Monocytes # 0.7 K/mcL (0.0-1.3); Monocytes % 7.3 %; Neutrophils # 7.6 K/mcL (1.6-8.9); Platelet Count 132 K/mcL (140-400); Red Blood Count 3.03 M/mcL (4.19-5.50); Red Cell Distribution Width 17.2 % (11.5-14.5); Segmented Neutrophils % 77.9 %; White Blood Count 9.8 K/mcL (4.3-11.1)
[2022-02-07 17:13] LABS: Calcium 8.6 mg/dL (8.6-10.3); Potassium 4.6 mEq/L (3.5-5.1)
[2022-02-07] MEDS ORDERED: Ringers Solution, Lactated 1,000 ML IVC SCH ×2 (18:15)
[2022-02-07] MEDS: *HR* Enoxaparin 100 MG/ML SYRINGE SQ SCH (18:29)
[2022-02-07] MEDS: metroNIDAZOLE 500 MG TABLET PO SCH (20:11)
[2022-02-07] MEDS: QUEtiapine Fumarate 25 MG TABLET PO SCH (20:11)
[2022-02-08] MEDS: *HR* Enoxaparin 100 MG/ML SYRINGE SQ SCH (04:54)
[2022-02-08 05:25] LABS: Hematocrit 27.7 % (37.5-50.1); Hemoglobin 8.2 g/dL (12.9-16.9); Mean Corpuscular HGB Conc 29.6 g/dL (31.6-35.5); Mean Corpuscular Hemoglobin 29.7 pg (28.0-33.3); Mean Corpuscular Volume 100.4 fL (83.0-100.0); Platelet Count 137 K/mcL (140-400); Red Blood Count 2.76 M/mcL (4.19-5.50); Red Cell Distribution Width 17.2 % (11.5-14.5); White Blood Count 7.4 K/mcL (4.3-11.1)
[2022-02-08 05:34] LABS: Calcium 8.6 mg/dL (8.6-10.3); Magnesium 1.4 mg/dL (1.6-2.6); Potassium 4.2 mEq/L (3.5-5.1)
[2022-02-08] MEDS: Metoprolol XL (24 HR) Succ 25 MG TAB.ER.24H PO SCH (08:44)
[2022-02-08] MEDS: Baclofen 10 MG TABLET PO SCH ×2 (08:44→15:19)
[2022-02-08] MEDS: metroNIDAZOLE 500 MG TABLET PO SCH ×2 (08:44→15:20)
[2022-02-08] MEDS: Pregabalin 50 MG CAPSULE PO SCH (08:45)
[2022-02-08 10:37] LABS: Potassium 4.3 mEq/L (3.5-5.1)
[2022-02-08] MEDS: *HR* OxyCODONE Immed Rel 5 MG TABLET PO PRN ×2 (12:02→18:17)
[2022-02-08] MEDS: Cefepime HCl 2,000 MG in 0.9 % Sodium Chloride 10 ML IVP SCH (12:03)
[2022-02-08 13:39] LABS: Hematocrit 30.6 % (37.5-50.1); Hemoglobin 9.3 g/dL (12.9-16.9)
[2022-02-08 14:37] VITALS: BP 131/86; PULSE 101; TEMP 98.4; O2SAT 97
[2022-02-08] MEDS: Fluconazole 100 MG TABLET PO SCH (15:20)
[2022-02-08] MEDS ORDERED: Apixaban 5 MG TABLET PO SCH (21:00)
== END 2022-02-08 18:20 | DRG 329 ==
LOC: 3BNU → 3ANU 12-27 10:53 → SUATTDRO 12-27 12:42 → ICNU 01-06 19:20 → 2NENU 01-13 06:49 → 3ANU 01-31 11:34
PROVIDERS: ADMIT Student in an Organized Health Care Education/Training Program; ATTEND Internal Medicine